=== PATIENT | female | born 1935 | race Caucasian/White ===

== ENCOUNTER 2017-08-04 12:26 | Inpatient (IN) ==
--- NOTE | 2017-08-04 13:03 | Emergency Department Note ---
Disposition Clinical Impression: Atrial flutter with rapid ventricular response, Hx of breast cancer, Pleural effusion Disposition: Admitted As Inpatient Condition: Serious Time of Disposition: 16:22 Arrhythmia/Palpitations HPI - General Chief Complaint: ED Arrhythmia/Palpitations Stated Complaint: A-Fib Time Seen by Provider: 08/04/17 12:36 Source: patient Limitations: no limitations Nursing Notes Reviewed: Yes Vital Signs Reviewed: Yes - History of Present Illness HPI Narrative: 82-year-old female history of paroxysmal A. fib on Coumadin and metoprolol, patient presents from her [facility] office Dr [facility] where she is being worked up for shortness of breath, she was found to be in A. fib with a rate of 150s, patient states that she has had worsening exertional dyspnea some 2 out of 10 chest discomfort worse with exertion. Patient states that she also has been having symptoms for approximately 2 weeks. She has felt palpitations. She states that she had 2 ablations that were unsuccessful, but she is normally rate controlled and not in A. fib. Patient also reports cough and congestion lately. She is a nonsmoker but lived with a smoker for 50 years and does have some wheezes and takes albuterol inhaler at home diagnosed with asthma. Patient denies abdominal pain nausea vomiting diarrhea constipation, hemoptysis or hematochezia. Pt Subjective Complaint: rapid heart beat, "heart racing", atrial fibrillation Onset (ago): week(s) Duration: constant Severity: moderate Arrhythmia History: atrial fibrillation Associated symptoms: Reports: shortness of breath. Denies: chest pain, syncope , near-syncope, nausea, vomiting, anxiety, diaphoresis, cough, paresthesias - Related Data Home Medications Medication Instructions Recorded Confirmed Aspirin Enteric Coated [Aspirin EC] 81 mg PO DAILY 06/08/15 08/04/17 Warfarin [Coumadin] 5 mg PO SUTUWETHSA 06/08/15 08/04/17 amLODIPine [Norvasc] 5 mg PO DAILY 02/19/17 08/04/17 Metoprolol Succinate 25 mg PO DAILY 08/04/17 08/04/17 Montelukast [Singulair] 10 mg PO DAILY 08/04/17 08/04/17 Warfarin [Coumadin] 7.5 mg PO MOFR 08/04/17 08/04/17 Allergies Allergy/AdvReac Type Severity Reaction Status Date / Time azithromycin Allergy Hives Verified 07/31/16 17:30 [From Zithromax Z-Galdino] lisinopril Allergy Cough Verified 08/04/17 13:23 mannitol [From Zometa] Allergy Anaphylaxis Verified 07/31/16 17:30 zoledronic acid [From Zometa] Allergy Anaphylaxis Verified 07/31/16 17:30 All systems ED: reviewed and negative except as stated. Review of Systems: As Per HPI Constitutional: Denies: fever, chills Eyes: Denies: eye pain ENT ED: Denies: ear pain Cardiovascular: Reports: as per HPI, palpitations, dyspnea on exertion, edema Respiratory: Reports: wheezes. Denies: cough, dyspnea Gastrointestinal: Denies: abdominal pain, nausea, vomiting Genitourinary: Denies: urgency, dysuria Musculoskeletal: Denies: back pain, neck pain Integumentary: Denies: rash Past Medical History - Past Medical History Attestation: Yes The following information was validated with the patient. Source: patient Medical history: Reports: atrial fibrillation, cancer, CVA, hypertension, malignancy Surgical history: Reports: breast surgery, knee replacement Psychiatric history: Reports: no psych history - Social History Smoking Status: Never smoker Smokeless Tobacco Status: No Alcohol use: Reports: none Drug use: Reports: none Physical Exam Constitutional: Elderly female appears moderately uncomfortable, on 3 L of oxygen satting 96% tachycardic Eyes: PERRLA, sclera anicteric ENT & Mouth: MM dry Neck: normal inspection, neck is supple Resp: Mild respiratory distress, diminished lung sounds at the bases positive scattered wheezes. CV: Irregularly irregular with +2 pitting edema. GI: normal inspection, soft, no guarding or rigidity Neuro: A&O3, CNII-XII grossly intact, FITZPATRICK Skin: on limited exam, skin intact with no rashes or lesions - General Limitations: no limitations General appearance: alert, in no apparent distress Course Course Narrative: 82-year-old female multiple comorbidities on Coumadin for atrial fibrillation and metoprolol, she is normally rate controlled and is now tachycardic rate of 162 ischemic changes on her EKG, also she is a history of breast cancer, concern for possible malignancy or PE given that she has this history, we have CTA imaging in additional to basic labs CBC BMP blood cultures lactate chest x- ray likely will be admission, Cardizem IV bolus and drip ordered, also diuresis with 40 of Lasix that she has new +2 pitting edema - Reevaluation(s) Reevaluation #1: Patient with A. fib with RVR, also has bilateral pleural effusions on CTA, admitted to medicine service diuresis with IV Lasix, patient is hemodynamically stable still mildly tachycardic titrating up the Cardizem drip, currently in ED hold, the hospitalist Dr. Quijano accepted the patient for admission Time: 16:21 Vital Signs Temperature 98.2 F 08/04/17 12:41 Pulse Rate 161 08/04/17 12:41 Respiratory Rate 18 08/04/17 12:41 Blood Pressure 155/97 08/04/17 12:41 O2 Sat by Pulse Oximetry 97 08/04/17 12:41 Temperature 98.2 F 08/04/17 12:41 Pulse Rate 144 08/04/17 16:21 Respiratory Rate 16 08/04/17 16:21 Blood Pressure 120/68 08/04/17 16:21 O2 Sat by Pulse Oximetry 98 08/04/17 16:21 Oxygen Delivery Oxygen Delivery Nasal Cannula Arrhythmia/Palpitations - Differential Diagnosis Differential Diagnosis: Likely: palpitations, artial arrhythmia - Medical Records Medical records reviewed: Yes I reviewed the patient's medical records. - Lab Data Lab results reviewed: Yes I reviewed the patient's lab results. Result diagrams: 08/04/17 12:50 08/04/17 13:39 Lab Results 08/04/17 08/04/17 08/04/17 Range/Units 12:50 13:08 13:29 WBC 6.0 (4.3-11.1) K/mcL RBC 4.91 (3.82-4.97) M/mcL Hgb 14.3 (11.5-15.4) g/dL Hct 44.8 (35.3-44.9) % MCV 91.2 (83.0-100.0) fL MCH 29.1 (28.0-33.3) pg MCHC 31.9 (31.6-35.5) g/dL RDW 13.7 (11.5-14.5) % Plt Count 221 (140-400) K/mcL MPV 10.0 (9.4-12.4) fL Immature Gran % 0.3 (0-4) % Seg Neutrophils % 68.3 % Lymphocytes % 21.1 % Monocytes % 8.1 % Eosinophils % 1.2 % Basophils % 1.0 % Neutrophils # 4.1 (1.6-8.9) K/mcL Lymphocytes # 1.3 (0.6-4.6) K/mcL Monocytes # 0.5 (0.0-1.3) K/mcL Eosinophils # 0.1 (0.0-0.6) K/mcL Basophils # 0.1 (0.0-0.2) K/mcL PT (9.4-12.1) Seconds INR APTT (26.0-36.0) Seconds Sodium (136-145) mEq/L Potassium (3.5-4.5) mEq/L Chloride (98-109) mEq/L Carbon Dioxide (19-29) mEq/L BUN (7-20) mg/dL Creatinine (0.57-1.11) mg/dL Est GFR ( Amer) (> 60) Est GFR (Non-Af Amer) (> 60) BUN/Creatinine Ratio (6-26) Glucose (70-99) mg/dL Calculated Osmolality (280-300) Lactic Acid (0.5-2.2) mmol/L Calcium (8.6-10.8) mg/dL Magnesium (1.6-2.6) mg/dL Troponin I (0-0.03) ng/mL B-Natriuretic Peptide (0-100) pg/mL TSH (0.350-4.840) mcIU/mL Urine Color Yellow (Yellow) Urine Clarity Clear (Clear) Urine pH 6.0 (5.0-8.0) pH Units Ur Specific [place] 1.023 (1.010-1.025) Urine Protein Trace (Neg-Trace) mg/dL Urine Glucose (UA) Normal (Normal) mg/dL Urine Ketones Negative (Negative) mg/dL Urine Blood Small H (Negative) Urine Nitrite Negative (Negative) Urine Bilirubin Negative (Negative) Urine Urobilinogen Normal (Normal) mg/dL Ur Leukocyte Esterase Small H (Negative) Urine Microscopic RBC 0-3 (0-3) per hpf Urine Microscopic WBC 0-3 (0-3) per hpf Ur Squamous Epith Cells Many H (None-Few) per lpf Urine Bacteria None Seen (None-Few) per hpf Hyaline Casts None Seen (None-Few) per lpf Urine Mucus Moderate H (Few) Ur Culture Indicated? YES A (NO) Specimen Rejected Hemolyzed 08/04/17 08/04/17 08/04/17 Range/Units 13:39 13:39 13:39 WBC (4.3-11.1) K/mcL RBC (3.82-4.97) M/mcL Hgb (11.5-15.4) g/dL Hct (35.3-44.9) % MCV (83.0-100.0) fL MCH (28.0-33.3) pg MCHC (31.6-35.5) g/dL RDW (11.5-14.5) % Plt Count (140-400) K/mcL MPV (9.4-12.4) fL Immature Gran % (0-4) % Seg Neutrophils % % Lymphocytes % % Monocytes % % Eosinophils % % Basophils % % Neutrophils # (1.6-8.9) K/mcL Lymphocytes # (0.6-4.6) K/mcL Monocytes # (0.0-1.3) K/mcL Eosinophils # (0.0-0.6) K/mcL Basophils # (0.0-0.2) K/mcL PT 49.3 H* (9.4-12.1) Seconds INR 4.4 H* APTT 49.8 H (26.0-36.0) Seconds Sodium 139 (136-145) mEq/L Potassium 4.2 (3.5-4.5) mEq/L Chloride 106 (98-109) mEq/L Carbon Dioxide 23 (19-29) mEq/L BUN 11 (7-20) mg/dL Creatinine 0.93 (0.57-1.11) mg/dL Est GFR ( Amer) > 60 (> 60) Est GFR (Non-Af Amer) 58 L (> 60) BUN/Creatinine Ratio 12 (6-26) Glucose 99 (70-99) mg/dL Calculated Osmolality 287 (280-300) Lactic Acid 1.2 (0.5-2.2) mmol/L Calcium 9.3 (8.6-10.8) mg/dL Magnesium 1.8 (1.6-2.6) mg/dL Troponin I (0-0.03) ng/mL B-Natriuretic Peptide (0-100) pg/mL TSH 2.145 (0.350-4.840) mcIU/mL Urine Color (Yellow) Urine Clarity (Clear) Urine pH (5.0-8.0) pH Units Ur Specific [place] (1.010-1.025) Urine Protein (Neg-Trace) mg/dL Urine Glucose (UA) (Normal) mg/dL Urine Ketones (Negative) mg/dL Urine Blood (Negative) Urine Nitrite (Negative) Urine Bilirubin (Negative) Urine Urobilinogen (Normal) mg/dL Ur Leukocyte Esterase (Negative) Urine Microscopic RBC (0-3) per hpf Urine Microscopic WBC (0-3) per hpf Ur Squamous Epith Cells (None-Few) per lpf Urine Bacteria (None-Few) per hpf Hyaline Casts (None-Few) per lpf Urine Mucus (Few) Ur Culture Indicated? (NO) Specimen Rejected 08/04/17 08/04/17 Range/Units 13:39 13:39 WBC (4.3-11.1) K/mcL RBC (3.82-4.97) M/mcL Hgb (11.5-15.4) g/dL Hct (35.3-44.9) % MCV (83.0-100.0) fL MCH (28.0-33.3) pg MCHC (31.6-35.5) g/dL RDW (11.5-14.5) % Plt Count (140-400) K/mcL MPV (9.4-12.4) fL Immature Gran % (0-4) % Seg Neutrophils % % Lymphocytes % % Monocytes % % Eosinophils % % Basophils % % Neutrophils # (1.6-8.9) K/mcL Lymphocytes # (0.6-4.6) K/mcL Monocytes # (0.0-1.3) K/mcL Eosinophils # (0.0-0.6) K/mcL Basophils # (0.0-0.2) K/mcL PT (9.4-12.1) Seconds INR APTT (26.0-36.0) Seconds Sodium (136-145) mEq/L Potassium (3.5-4.5) mEq/L Chloride (98-109) mEq/L Carbon Dioxide (19-29) mEq/L BUN (7-20) mg/dL Creatinine (0.57-1.11) mg/dL Est GFR ( Amer) (> 60) Est GFR (Non-Af Amer) (> 60) BUN/Creatinine Ratio (6-26) Glucose (70-99) mg/dL Calculated Osmolality (280-300) Lactic Acid (0.5-2.2) mmol/L Calcium (8.6-10.8) mg/dL Magnesium (1.6-2.6) mg/dL Troponin I 0.01 (0-0.03) ng/mL B-Natriuretic Peptide 577 H (0-100) pg/mL TSH (0.350-4.840) mcIU/mL Urine Color (Yellow) Urine Clarity (Clear) Urine pH (5.0-8.0) pH Units Ur Specific [place] (1.010-1.025) Urine Protein (Neg-Trace) mg/dL Urine Glucose (UA) (Normal) mg/dL Urine Ketones (Negative) mg/dL Urine Blood (Negative) Urine Nitrite (Negative) Urine Bilirubin (Negative) Urine Urobilinogen (Normal) mg/dL Ur Leukocyte Esterase (Negative) Urine Microscopic RBC (0-3) per hpf Urine Microscopic WBC (0-3) per hpf Ur Squamous Epith Cells (None-Few) per lpf Urine Bacteria (None-Few) per hpf Hyaline Casts (None-Few) per lpf Urine Mucus (Few) Ur Culture Indicated? (NO) Specimen Rejected - Radiology Data Radiology results reviewed: Yes I reviewed the patient's radiology results. Chest X-Ray 08/04/17 12:38 IMPRESSION: Small right effusion and associated right basilar airspace disease, atelectasis versus pneumonia. Follow-up radiographs recommended to document resolution. D/ / Janes Dang MD / Janes Dang MD Interpreting Provider: Janes Dang MD - EKG Data EKG attestation: Yes I reviewed and interpreted this EKG. Rate: tachycardia Rhythm: A.Fib (162 QRS 94 QTC 363 rapid atrial fibrillation SE depressions in lateral leads V4 through V6, no ST elevations) Critical Care Time Critical Care Time: Yes Total Critical Care Time: 35 Attestation: Critical care performed: Time is exclusive of separately billable procedures. Time includes: direct patient care, patient reassessment, coordination of patient care, interpretation of data (laboratory data, radiology data, and respiratory data), review of patient's medical records, medical consultation and documentation of patient care. Procedures included in critical care time: Procedures excluded from critical care time: Attestation Statement - Attestation Attestation: I, Vitaly French DO, examined this patient [id number] and my medical decision-making was reviewed with Dr. Scott Obrien, Resident Physician. I agree with the documented findings, disposition and treatment plan as described except to the extent set forth below. Please see my progress notes for details. Patient seen and examined the time arrival. 82-year-old female presents emergency room for evaluation of increasing exertional dyspnea and A. fib RVR. EKG confirms A. fib with rapid ventricular response. Patient has had persistently worsening exertional conversational dyspnea over the last several weeks to the point where she is unable to take 5-10 steps without feeling short of breath. She has not had an echo or stress test complete pleated performed within the last several years. Denies any recent trauma or illness. Currently denying chest pain shortness breath headache vision changes nausea vomiting or diarrhea. Denies headache or fevers or chills at this point. She has not been able to ambulate around the emergency room without shortness of breath this time. Physical exam is unremarkable except for tachycardia. Her lungs are intermittently coarse and expiration but no acute signs of wheezing or consolidation noted. Detailed evaluation to be completed with shortness of breath as the main concern. Cardizem drip ordered and started this point. Her rate control. Hospice patient for admission. No other concerns or issues noted in this treatment course. Concern is the patient has decompensated heart failure secondary to the atrial fibrillation. Patient will require admission for definitive evaluation and management. Patient is currently on Coumadin her INR is 4.4. No reversal agents to be started at this point we will continue to monitor during the treatment course. See detailed documentation of physical exam, medical intervention and medical decision making and disposition of the resident physician's note. 1425 Patient has scant pleural effusion on evaluation CT angiography of the chest ordered secondary to her history of lung cancer. INR is 4.4 and will not be corrected at this time. Admission process to be completed. Critical care applied to this patient during the treatment course secondary to A. fib RVR and Cardizem drip
[2017-08-04 13:07] LABS: Basophils # 0.1 K/mcL (0.0-0.2); Eosinophils # 0.1 K/mcL (0.0-0.6); Eosinophils % 1.2 %; Hematocrit 44.8 % (35.3-44.9); Hemoglobin 14.3 g/dL (11.5-15.4); Immature Granulocytes % 0.3 % (0-4); Lymphocytes # 1.3 K/mcL (0.6-4.6); Lymphocytes % 21.1 %; Mean Corpuscular HGB Conc 31.9 g/dL (31.6-35.5); Mean Corpuscular Hemoglobin 29.1 pg (28.0-33.3); Mean Corpuscular Volume 91.2 fL (83.0-100.0); Monocytes # 0.5 K/mcL (0.0-1.3); Monocytes % 8.1 %; Neutrophils # 4.1 K/mcL (1.6-8.9); Platelet Count 221 K/mcL (140-400); Red Blood Count 4.91 M/mcL (3.82-4.97); Red Cell Distribution Width 13.7 % (11.5-14.5); Segmented Neutrophils % 68.3 %
[2017-08-04] MEDS ORDERED: Aspirin 81 MG TAB.CHEW PO ONE (13:15)
[2017-08-04] MEDS ORDERED: Furosemide 40 MG/4 ML VIAL IVP ONE (13:15)
[2017-08-04 13:36] LABS: Bilirubin,Urine Negative (Negative); Blood,Urine Small (Negative); Clarity,Urine Clear (Clear); Color,Urine Yellow (Yellow); Glucose,Urine (UA) Normal (Normal); Ketones,Urine Negative (Negative); Leukocyte Esterase,Urine Small (Negative); Nitrite,Urine Negative (Negative); Protein,Urine Trace mg/dL (Neg-Trace); Specific Gravity,Urine 1.023 (1.010-1.025); Urobilinogen,Urine Normal (Normal)
[2017-08-04 13:38] LABS: Bacteria,Urine None Seen per hpf (None-Few); Hyaline Casts,Urine None Seen per lpf (None-Few); Squamous Epithelial Cell,Urine Many per lpf (None-Few); WBC,Urine 0-3 per hpf (0-3)
[2017-08-04 13:48] LABS: Mucus,Urine Moderate (Few); RBC,Urine 0-3 per hpf (0-3)
[2017-08-04 14:05] LABS: Activated Partial Thrombo Time 49.8 Seconds (26.0-36.0)
[2017-08-04 14:07] LABS: BUN/Creatinine Ratio 12 (6-26); Blood Urea Nitrogen 11 mg/dL (7-20); Calcium 9.3 mg/dL (8.6-10.8); Carbon Dioxide 23 mEq/L (19-29); Chloride 106 mEq/L (98-109); Glucose 99 mg/dL (70-99); Magnesium 1.8 mg/dL (1.6-2.6); Osmolality,Calculated 287 (280-300); Potassium 4.2 mEq/L (3.5-4.5); Sodium 139 mEq/L (136-145); eGFR For African Americans > 60 (> 60); eGFR For Non-African Americans 58 (> 60)
[2017-08-04 14:19] LABS: INR 4.4; Prothrombin Time 49.3 Seconds (9.4-12.1)
[2017-08-04 14:29] LABS: Thyroid Stimulating Hormone 2.145 mcIU/mL (0.350-4.840)
[2017-08-04] MEDS: dilTIAZem HCl 100 MG in D5% in Water 50 ML IVC SCH ×2 (14:29→23:54)
--- NOTE | 2017-08-04 20:01 | Internal Med History&Physical ---
Date of Encounter: 08/04/17 Time of Encounter: 19:54 Assessment and Plan (1) Atrial fibrillation and flutter Current visit: Yes Status: Acute continue coumadin, check INR Dilt gtt continue metoprolol tele, close monitoring TFT (2) Acute bronchitis Current visit: Yes Status: Acute IV steroids,doxycycline, duonebs Check RVP Qualifiers: Bronchitis organism: other organism Qualified Code(s): J20.8 - Acute bronchitis due to other specified organisms (3) HTN (hypertension) Current visit: Yes Status: Acute hold norvasc Qualifiers: Hypertension type: essential hypertension Qualified Code(s): I10 - Essential (primary) hypertension Internal Medicine - H&P: HPI Chief complaint: SOB History of present illness: Ms. Costa is a 82 year old female who presents with acute bronchitis AND A. fib RVR. She has a history of atrial fibrillation since [address] Garcia outpatient and is currently being work up by Pulm for SOB. She does not smoke, but i believe she has some possibly some COPD from second hand smoke from . She was in the clinic today when she developed SOB on walk test. Found to be in AFib rvr. It is worse on exertion, improve with rest EKG personally reviewed with rate 162, RVR CT/CT angio chest IMPRESSION: 1. No evidence of pulmonary embolism. 2. Moderate right and small left pleural effusions with adjacent airspace disease, atelectasis versus pneumonia versus edema. 3. Bronchial wall thickening. A component of bronchitis or reactive airways disease is considered. 4. Small hiatal hernia. Cholelithiasis. XR/XR chest 1V portable IMPRESSION: Small right effusion and associated right basilar airspace disease, atelectasis versus pneumonia. Follow-up radiographs recommended to document resolution. Past Med Surg Social Fam HX - Past Medical History Medical history: asthma, atrial fibrillation, cancer, CVA, hypertension, malignancy Psychiatric history: no psych history - Past Surgical History Surgical History: breast surgery, knee replacement - Social History Smoking Status: Never smoker Smokeless Tobacco Status: No Alcohol use: none Drug use: none - Family History Mother Living Status: Hx Family Cancer: Yes Internal Medicine - H&P: Meds Aspirin Enteric Coated [Aspirin EC] 81 mg PO DAILY 06/08/15 [History] Warfarin [Coumadin] 5 mg PO SUTUWETHSA 06/08/15 [History] amLODIPine [Norvasc] 5 mg PO DAILY 02/19/17 [History] Metoprolol Succinate 25 mg PO DAILY 08/04/17 [History] Montelukast [Singulair] 10 mg PO DAILY 08/04/17 [History] Warfarin [Coumadin] 7.5 mg PO MOFR 08/04/17 [History] 3 Allergy/AdvReac Type Severity Reaction Status Date / Time azithromycin Allergy Hives Verified 07/31/16 17:30 [From Zithromax Z-Galdino] lisinopril Allergy Cough Verified 08/04/17 13:23 mannitol [From Zometa] Allergy Anaphylaxis Verified 07/31/16 17:30 zoledronic acid [From Zometa] Allergy Anaphylaxis Verified 07/31/16 17:30 All Systems PM: A 10-system review of systems was performed and is negative for pertinent findings except as documented above in the HPI. Review of systems: ROS 14 point review of systems reviewed as best as possible given presentation. Pertinent positive or negative as per HPI or otherwise reviewed as negative - Constitutional Vitals: Temp Pulse Resp BP Pulse Ox 98.2 F 130 18 117/61 99 08/04/17 12:41 08/04/17 17:49 08/04/17 17:49 08/04/17 17:49 08/04/17 17:49 Exam: General - AAO x 3 Psych - Appropriate affect/speech. No agitation Eyes - PAMELA. Eye lids intact. No scleral icterus Heart - Irregularly irregular S1 and S2 present. No added HS/murmurs appreciated. No elevated JVD appreciated. Lung - Adequate air entry b/l, diffuse wheezes, no crackles appreciated GI - Soft, non-tender. No hepatosplenomegaly/ascites. BS+ - No CVA/suprapubic tenderness or palpable bladder distension Skin - Intact. No rash/petechiae/ecchymosis. Warm extremities MSK - Joints with normal ROM. No joint swellings Internal Med - H&P Results - Labs CBC & Chem 7: 08/04/17 12:50 08/04/17 13:39
[2017-08-04] MEDS ORDERED: Acetaminophen 325 MG TABLET PO PRN (20:27)
[2017-08-04] MEDS ORDERED: Naloxone 0.4 MG/ML INJ IVP PRN (20:27)
[2017-08-04] MEDS ORDERED: Ipratropium/Albuterol Neb 3 ML IH PRN (20:29)
[2017-08-04] MEDS ORDERED: *HR* Warfarin 10 MG TABLET PO SCH (20:30)
[2017-08-04] MEDS ORDERED: Azithromycin 500 MG in D5% in Water 250 ML IVPB SCH (21:00)
[2017-08-04] MEDS ORDERED: 0.9 % Sodium Chloride 500 ML ONE ×2 (21:14→23:58)
[2017-08-04] MEDS: Doxycycline 100 MG in 0.9 % Sodium Chloride Mini Bag 100 ML IVPB SCH (22:21)
[2017-08-04] MEDS: Ipratropium/Albuterol Neb 3 ML IH SCH (22:21)
[2017-08-04] MEDS: MethylPREDNISolone 40 MG/ML VIAL IVP SCH (23:54)
[2017-08-05] MEDS: Ipratropium/Albuterol Neb 3 ML IH SCH ×2 (03:58→11:11)
[2017-08-05 05:56] LABS: Basophils % 0.1 %; Eosinophils % 0.1 %; Hematocrit 41.8 % (35.3-44.9); Hemoglobin 13.6 g/dL (11.5-15.4); Immature Granulocytes % 0.3 % (0-4); Lymphocytes # 0.6 K/mcL (0.6-4.6); Lymphocytes % 8.3 %; Mean Corpuscular HGB Conc 32.5 g/dL (31.6-35.5); Mean Corpuscular Hemoglobin 29.6 pg (28.0-33.3); Mean Corpuscular Volume 90.9 fL (83.0-100.0); Mean Platelet Volume 9.8 fL (9.4-12.4); Monocytes # 0.1 K/mcL (0.0-1.3); Monocytes % 1.3 %; Neutrophils # 6.2 K/mcL (1.6-8.9); Platelet Count 177 K/mcL (140-400); Red Cell Distribution Width 13.4 % (11.5-14.5); Segmented Neutrophils % 89.9 %
[2017-08-05] MEDS: MethylPREDNISolone 40 MG/ML VIAL IVP SCH (05:57)
[2017-08-05 06:04] LABS: BUN/Creatinine Ratio 13 (6-26); Blood Urea Nitrogen 13 mg/dL (7-20); Calcium 8.6 mg/dL (8.6-10.8); Carbon Dioxide 21 mEq/L (19-29); Chloride 106 mEq/L (98-109); Glucose 185 mg/dL (70-99); Magnesium 1.7 mg/dL (1.6-2.6); Osmolality,Calculated 291 (280-300); Potassium 3.8 mEq/L (3.5-4.5); Sodium 138 mEq/L (136-145); eGFR For African Americans > 60 (> 60); eGFR For Non-African Americans 53 (> 60)
[2017-08-05 06:26] LABS: Thyroid Stimulating Hormone 1.118 mcIU/mL (0.350-4.840)
[2017-08-05 06:40] LABS: Prothrombin Time 48.8 Seconds (9.4-12.1)
[2017-08-05 06:41] LABS: INR 4.4
[2017-08-05] MEDS: Aspirin Enteric Coated 81 MG Tablet PO SCH (08:41)
[2017-08-05] MEDS: Metoprolol XL (24 HR) Succ 50 MG TAB.ER.24H PO SCH (08:41)
[2017-08-05] MEDS: Doxycycline 100 MG in 0.9 % Sodium Chloride Mini Bag 100 ML IVPB SCH (08:41)
[2017-08-05] MEDS ORDERED: Furosemide 40 MG/4 ML VIAL IVP ONE (09:00)
--- NOTE | 2017-08-05 09:46 | Internal Med Progress Note ---
Date of Encounter: 08/05/17 Time of Encounter: 09:44 - Assessment and plan (1) Atrial flutter with rapid ventricular response Current Visit: Yes Status: Acute Assessment and plan: Patient has known history of paroxysmal atrial fibrillation, on metoprolol at home. Presented with atrial fibrillation with rapid ventricular response. Started on IV Cardizem drip, currently requiring 15 mg/h, continue to titrate and monitor heart rate to keep between 90 and 110. Supplemental oxygen. Continue by mouth metoprolol. On long-term anticoagulation with Coumadin, currently on hold due to high INR. Follow-up echocardiogram. Continue telemetry monitoring and supportive care. (2) Pleural effusion Current Visit: Yes Status: Acute Assessment and plan: CT chest shows bilateral pleural effusion, right greater than left. Likely a result of tachycardia. We will consult IR for ultrasound-guided thoracentesis. Continue IV Lasix. (3) Acute bronchitis Current Visit: Yes Status: Acute Assessment and plan: Improving. We will hold steroids for now. Continue doxycycline. Supplemental oxygen. Qualifiers: Bronchitis organism: unspecified organism Qualified Code(s): J20.9 - Acute bronchitis, unspecified (4) CKD (chronic kidney disease), stage III Current Visit: Yes Status: Chronic Assessment and plan: Serum creatinine noted to be stable, at baseline. Continue to monitor closely. (5) Hx of breast cancer Current Visit: Yes Status: Chronic (6) HTN (hypertension) Current Visit: Yes Status: Chronic Qualifiers: Hypertension type: essential hypertension Qualified Code(s): I10 - Essential (primary) hypertension - Subjective Interval history: Feels better with improved shortness of breath; no palpitations although HR is still high, on IV Cardizem drip; no chest pain, leg swelling; still has exertional dyspnea; requiring NC O2; - Constitutional Vitals: Temp Pulse Resp BP Pulse Ox 97.6 F 118 17 117/76 95 08/05/17 07:06 08/05/17 07:06 08/05/17 07:06 08/05/17 08:38 08/05/17 07:06 General appearance: Present: A&O X 3, answers questions appropriately - Respiratory Respiratory exam: Present: decreased breath sounds (at right base), CTAB. Absent: accessory muscle use, rales, rhonchi, wheezes - Cardiovascular Cardiovascular exam: Present: irregular rhythm, +S1, +S2, tachycardia. Absent: diastolic murmur, gallop, rubs, systolic murmur - GI/Abdominal GI/Abdominal exam: Present: normal bowel sounds, soft, no peritoneal signs. Absent: distended, tenderness - Extremities Exam Extremities exam: Present: full ROM, warm, radial pulses palpable and symmetrical. Absent: calf tenderness, cyanotic, pedal edema - Neurological Exam Neurological exam: Present: CN II-XII intact, oriented X3, no focal deficits. Absent: pronater drift, facial droop, speech deficit Internal Medicine: Result - Labs CBC & Chem 7: 08/06/17 03:59 08/06/17 03:59 Labs: Short CBC 08/05/17 Range/Units 05:41 WBC 6.9 (4.3-11.1) K/mcL Hgb 13.6 (11.5-15.4) g/dL Hct 41.8 (35.3-44.9) % Plt Count 177 (140-400) K/mcL Neutrophils # 6.2 (1.6-8.9) K/mcL BMP 08/05/17 05:41 Sodium 138 Potassium 3.8 Chloride 106 Carbon Dioxide 21 BUN 13 Creatinine 1.00 Glucose 185 H Calcium 8.6 - ABG Interpretation ABG results: PT/INR, D-dimer PT 48.8 Seconds (9.4-12.1) H* 08/05/17 05:41 Consult Discharge Plan - Plan Referrals: Elizabeth Goldman MD [Primary Care Provider] - 08/12/17 1:45 pm (web request sent on 08/05/17)
[2017-08-05] MEDS: Furosemide 40 MG/4 ML VIAL IVP SCH ×2 (10:07→17:42)
[2017-08-05] MEDS ORDERED: Albuterol 2.5 MG/3 ML NEBULIZER IH PRN (11:50)
[2017-08-05] MEDS ORDERED: Albuterol 2.5 MG/3 ML NEBULIZER IH SCH (16:00)
[2017-08-05] MEDS: dilTIAZem HCl 100 MG in D5% in Water 50 ML IVC SCH (16:17)
[2017-08-05] MEDS: Levalbuterol Neb 0.63 MG/3 ML IH SCH ×2 (16:35→21:09)
[2017-08-05] MEDS: Ipratropium Neb 0.5 MG NEBULIZER IH SCH ×2 (16:38→21:09)
[2017-08-05] MEDS: Doxycycline 100 MG CAPSULE PO SCH (17:41)
[2017-08-05] MEDS ORDERED: Warfarin perPT PO PRN ×2 (18:00)
[2017-08-06] MEDS ORDERED: 0.9 % Sodium Chloride 500 ML ONE ×2 (00:41→21:24)
[2017-08-06] MEDS: *HR* Metoprolol 5 MG/5 ML VIAL IVP PRN (00:47)
[2017-08-06] MEDS: Ipratropium Neb 0.5 MG NEBULIZER IH SCH ×4 (03:29→22:13)
[2017-08-06] MEDS: Levalbuterol Neb 0.63 MG/3 ML IH SCH ×6 (03:29→22:13)
[2017-08-06 04:33] LABS: Basophils % 0.1 %; Hematocrit 38.5 % (35.3-44.9); Hemoglobin 12.7 g/dL (11.5-15.4); Immature Granulocytes % 0.4 % (0-4); Lymphocytes # 0.7 K/mcL (0.6-4.6); Lymphocytes % 4.7 %; Mean Corpuscular Hemoglobin 29.7 pg (28.0-33.3); Mean Corpuscular Volume 90.2 fL (83.0-100.0); Mean Platelet Volume 10.2 fL (9.4-12.4); Monocytes # 0.5 K/mcL (0.0-1.3); Monocytes % 3.5 %; Neutrophils # 12.7 K/mcL (1.6-8.9); Platelet Count 183 K/mcL (140-400); Red Blood Count 4.27 M/mcL (3.82-4.97); Red Cell Distribution Width 13.4 % (11.5-14.5); Segmented Neutrophils % 91.3 %
[2017-08-06 04:48] LABS: Calcium 8.4 mg/dL (8.6-10.8); Magnesium 1.8 mg/dL (1.6-2.6); Potassium 3.9 mEq/L (3.5-4.5)
[2017-08-06 04:54] LABS: INR 4.1
[2017-08-06 04:59] LABS: Prothrombin Time 45.8 Seconds (9.4-12.1)
[2017-08-06] MEDS: Doxycycline 100 MG CAPSULE PO SCH ×2 (05:48→17:36)
[2017-08-06] MEDS: dilTIAZem HCl 100 MG in D5% in Water 50 ML IVC SCH ×2 (05:48→15:11)
[2017-08-06] MEDS ORDERED: *HR* Phytonadione 5 MG TABLET PO ONE (08:36)
--- NOTE | 2017-08-06 08:47 | Internal Med Progress Note ---
Date of Encounter: 08/06/17 Time of Encounter: 08:44 - Assessment and plan (1) Atrial fibrillation with RVR Current Visit: Yes Status: Acute Assessment and plan: On IV Cardizem drip at 10mg/hr, HR continues to fluctuate between 130 and 110; Echocardiogram pending; PRN IV Metoprolol; anticoagulation with Coumadin on hold due to high INR; Patient likely has acute CHF due to a.fib, with right pleural effusion and pedal edema; will switch Lasix to PO LAsix today, had good urine output; continue supportive care and supplemental O2; will consult Cardiology; (2) Acute bronchitis Current Visit: Yes Status: Acute Assessment and plan: improved; continue Doxycycline and supplemental O2; Qualifiers: Bronchitis organism: unspecified organism Qualified Code(s): J20.9 - Acute bronchitis, unspecified (3) Pleural effusion Current Visit: Yes Status: Acute Assessment and plan: right-sided moderate pleural effusion likely due to A.fib with RVR; IR consulted for thoracentesis, pending improvement in INR; will give small dose of Vit K today; (4) CKD (chronic kidney disease), stage III Current Visit: Yes Status: Chronic Assessment and plan: serum creatinine noted to be worse due to IV diuresis; continue to monitor closely; (5) Hx of breast cancer Current Visit: Yes Status: Chronic (6) HTN (hypertension) Current Visit: Yes Status: Chronic Qualifiers: Hypertension type: essential hypertension Qualified Code(s): I10 - Essential (primary) hypertension - Subjective Interval history: Improving shortness of breath, tolerates diet; requiring IV Cardizem drip and supplemental O2; ambulating well; - Constitutional Vitals: Temp Pulse Resp BP Pulse Ox 97.7 F 96 17 111/78 92 08/06/17 07:26 08/06/17 07:26 08/06/17 07:26 08/06/17 07:26 08/06/17 07:26 General appearance: Present: A&O X 3, answers questions appropriately - Respiratory Respiratory exam: Present: decreased breath sounds (at right base, improved from yesterday), CTAB. Absent: accessory muscle use, rales, rhonchi, wheezes - Cardiovascular Cardiovascular exam: Present: irregular rhythm, +S1, +S2, tachycardia. Absent: diastolic murmur, gallop, rubs, systolic murmur - GI/Abdominal GI/Abdominal exam: Present: normal bowel sounds, soft, no peritoneal signs. Absent: distended, tenderness - Extremities Exam Extremities exam: Present: full ROM, pedal edema (improving), warm, radial pulses palpable and symmetrical. Absent: calf tenderness, cyanotic - Neurological Exam Neurological exam: Present: CN II-XII intact, oriented X3, no focal deficits. Absent: pronater drift, facial droop, speech deficit Internal Medicine: Result - Labs CBC & Chem 7: 08/06/17 03:59 08/06/17 03:59 Labs: Short CBC 08/06/17 Range/Units 03:59 WBC 13.9 H D (4.3-11.1) K/mcL Hgb 12.7 (11.5-15.4) g/dL Hct 38.5 (35.3-44.9) % Plt Count 183 (140-400) K/mcL Neutrophils # 12.7 H (1.6-8.9) K/mcL BMP 08/06/17 03:59 Sodium 139 Potassium 3.9 Chloride 106 Carbon Dioxide 22 BUN 21 H Creatinine 1.12 H Glucose 149 H Calcium 8.4 L - ABG Interpretation ABG results: PT/INR, D-dimer PT 45.8 Seconds (9.4-12.1) H* 08/06/17 03:59 Consult Discharge Plan - Plan Referrals: Elizabeth Goldman MD [Primary Care Provider] - 08/12/17 1:45 pm (web request sent on 08/05/17)
[2017-08-06] MEDS: Aspirin Enteric Coated 81 MG Tablet PO SCH (09:11)
[2017-08-06] MEDS: Metoprolol XL (24 HR) Succ 50 MG TAB.ER.24H PO SCH (09:13)
[2017-08-06] MEDS: Furosemide 20 MG TABLET PO SCH ×2 (09:13→17:20)
[2017-08-06] MEDS: Furosemide 40 MG/4 ML VIAL IVP SCH (10:24)
--- NOTE | 2017-08-06 14:57 | Cardiology Consult Note ---
Date of Encounter: 08/06/17 Time of Encounter: 14:00 Assessment and Plan (1) Atrial fibrillation with RVR Current Visit: Yes Status: Acute Per cardiology: -Know paroxysmal atrial fibrillation. On admission adrian RVR. -Currently on cardizem drip at 10mg/hour and toprol 25mg daily. -TTE with LVEF 50-55%, no segmental wall motion abnormalities noted. -TSH, K, Mg within normal limits. -On coumadin for anticoagulation, INR supratherapuetic. Follows with anticoagulation clinic. INRs have been therapuetic for the last 30 days. INR 2.1, 07/01 2.6, 07/07 2.3. -Average HR previous 12 hours noted to be 101, atrial fibrillation. -ECG on admission with adrian RVR, HR 162. QT 273, QTc 363ms. -ECG 08/19/16 with SB, HR 57. QT 460, QTc 454ms. -Per discussion with Dr.John Arevalo, will start sotalol 40mg [id number]. Patient educated that she would need to be inpatient for several days for initiation of sotalol and need for monitoring. Patient states understanding and agreeable to proceed. -ECG daily. Continue telemetry monitoring. -Continue cardizem drip and toprol for now, will make adjustements as necessary. -Will continue to monitor. (2) CHF (congestive heart failure) Current Visit: Yes Status: Acute Per cardiology: -ADmitted with increased shortness of breath. -BNP on admission 577. -Chest CT with moderate right pleural effusion and small left pleural effusion. -Baseline weight 88kg. -Weight on admission 90.3kg, now down to 88kg today. -Was given IV lasix, now on po per primary service. -Euvolemic on exam today. -Strict i/os, daily weights. -Will continue to monitor. Qualifiers: Congestive heart failure type: diastolic Congestive heart failure chronicity: acute Qualified Code(s): I50.31 - Acute diastolic (congestive) heart failure Discussion w patient/family: The assessment and plan as outlined above was discussed with the patient and/or family members who expressed understanding and agreement. All questions were answered. Thank you for involving us in the care of your patient. Please call with any questions. Discuissed and reviewed with Dr.John Arevalo. History of Present Illness Consult date: 08/06/17 Requesting physician: Camille Milian Consult reason: [email or web address] RVR Chief complaint: shortness of breath, tachycardia. History of present illness: Ms. Costa is a 82 year old female with a relevant past medical history of paroxysmal atrial fibrillation, CVA, HTN, asthma. Patient presented to [facility] after being seen by pulmonary and noted to have HRs 150s. Patient denies palpitations or fluttering. Patient states she has been more short of breath and more fatigued here lately. Patient denies chest pain. Patient also reports had increased peripheral edema upon presentation to [facility]. Past Med Surg Social Fam HX - Past Medical History Attestation: Yes The following information was validated with the patient. Source: patient, old records reviewed, obtained from family Medical history: asthma, atrial fibrillation, cancer, CVA, hypertension, malignancy Psychiatric history: no psych history - Past Surgical History Surgical History: breast surgery, knee replacement - Social History Smoking Status: Never smoker Smokeless Tobacco Status: No Alcohol use: none Drug use: none - Family History Mother Living Status: Hx Family Cancer: Yes Medications and Allergies Aspirin Enteric Coated [Aspirin EC] 81 mg PO DAILY 06/08/15 [History] Warfarin [Coumadin] 5 mg PO SUTUWETHSA 06/08/15 [History] amLODIPine [Norvasc] 5 mg PO DAILY 02/19/17 [History] Metoprolol Succinate 25 mg PO DAILY 08/04/17 [History] Montelukast [Singulair] 10 mg PO DAILY 08/04/17 [History] Warfarin [Coumadin] 7.5 mg PO MOFR 08/04/17 [History] 3 Allergy/AdvReac Type Severity Reaction Status Date / Time azithromycin Allergy Hives Verified 07/31/16 17:30 [From Zithromax Z-Galdino] lisinopril Allergy Cough Verified 08/04/17 13:23 mannitol [From Zometa] Allergy Anaphylaxis Verified 07/31/16 17:30 zoledronic acid [From Zometa] Allergy Anaphylaxis Verified 07/31/16 17:30 All Systems Review: A 10-system review of systems was performed and is negative for pertinent findings except as documented above in the HPI. - Constitutional Constitutional: fatigue - Cardiovascular Cardiovascular: as per HPI, dyspnea on exertion, rapid heart rate Physical Examination Vital Signs, Last 4 Hours Temp Pulse Resp BP Pulse Ox 08/06/17 13:51 97.8 F 98 18 101/68 93 08/06/17 13:10 98.0 F 96 17 108/66 99 General: Conversant, No Apparent Distress HEENT: Atraumatic, Normocephaly, Mucus Membranes Moist Neck: No JVD, Normal carotid pulses Cardiac: Normal S1 and S2, No Murmur, Other (Irregularly irregular) Lungs: Normal Breath Sounds, No Wheeze, Rales, Rhonchi Neuro: Alert and responsive, No focal deficits noted Abdomen: Soft, Non-Tender Skin: No rashes noted on visualized skin Musculoskeletal: No Chest Wall Tenderness Extremities: No Clubbing, No Cyanosis, No Edema, Normal Pulses Results 08/06/17 03:59 08/06/17 03:59 Lab Results Impressions Echocardiogram 08/05/17 09:46 Impressions: LVEF 50-55%. Normal LV chamber size and function. Indeterminate diastolic function. Normal right ventricular structure and function. Mild to moderately dilated right atrium. Mild mitral regurgitation. Mild tricuspid regurgitation. No pulmonary hypertension. Left Ventricular Wall Motion: Rest Echo Findings All wall segments showed normal motion. Findings: Study Quality * Technically adequate exam. ECG Findings * Atrial fibrillation. Left Ventricle * LVEF 50-55%. * Normal LV chamber size and function. * Indeterminate diastolic function. Right Ventricle * Normal right ventricular structure and function. Left Atrium * Moderately dilated left atrium. Right Atrium * Mild to moderately dilated right atrium. Interatrial Septum * Interatrial septum not well evaluated. Aortic Valve * Aortic valve not well visualized. * No aortic stenosis. * No aortic regurgitation. Mitral Valve * Normal mitral valve structure. * Mild mitral regurgitation. * No mitral stenosis. Tricuspid Valve * Normal tricuspid valve structure. * Mild tricuspid regurgitation. * No pulmonary hypertension. Pulmonic Valve * Normal pulmonic valve structure and function. * No pulmonic regurgitation. Aorta * Normally sized aortic root. Pericardium * The pericardium appears normal. IVC * Normal IVC dimensions and inspiratory collapse. Pulmonary Artery * Normal visualized portions of the main pulmonary artery. Active Medications Acetaminophen (Tylenol) 650 mg PO Q6HR PRN PRN Reason: Mild Pain (1-3) Stop: 02/03/18 20:28 Albuterol Sulfate (Proventil Neb) 2.5 mg IH Q2H PRN; Protocol PRN Reason: Shortness Of Breath/Wheezing Stop: 02/04/18 11:51 Aspirin (Aspirin Ec) 81 mg PO DAILY [facility] Stop: 02/04/18 09:01 Last Admin: 08/06/17 09:11 Dose: 81 mg Docusate Sodium (Colace) 100 mg PO BID KEYANA PRN Reason: Protocol Stop: 02/05/18 09:01 Last Admin: 08/06/17 09:11 Dose: 100 mg Doxycycline Hyclate (Doxycycline) 100 mg PO Q12HR KEYANA Stop: 02/04/18 18:01 Last Admin: 08/06/17 05:48 Dose: 100 mg Furosemide (Lasix) 20 mg PO BIDDIURETIC [facility] Stop: 02/05/18 08:46 Last Admin: 08/06/17 09:13 Dose: 20 mg Diltiazem HCl 100 mg/ Dextrose 50 mls @ 2.5 mls/hr IVC .Q20H KEYANA PRN Reason: 5 MG/HR Stop: 02/03/18 13:16 Last Admin: 08/06/17 05:48 Dose: 10 mg/hr, 5 mls/hr Ipratropium [place] (Atrovent Neb) 0.5 mg IH [id number] [facility] Stop: 02/04/18 16:01 Last Admin: 08/06/17 10:44 Dose: Not Given Levalbuterol HCl (Xopenex) 0.63 mg IH [id number] [facility] Stop: 02/04/18 16:01 Last Admin: 08/06/17 10:44 Dose: Not Given Metoprolol Succinate (Toprol Xl) 25 mg PO DAILY [facility] Stop: 02/04/18 09:01 Last Admin: 08/06/17 09:13 Dose: 25 mg Metoprolol Tartrate (Lopressor) 5 mg IVP Q6HR PRN PRN Reason: HR>110 Stop: 02/04/18 09:43 Last Admin: 08/06/17 00:47 Dose: 5 mg Montelukast Sodium (Singulair) 10 mg PO DAILY [facility] Stop: 02/04/18 09:01 Last Admin: 08/06/17 09:10 Dose: 10 mg Naloxone HCl (Narcan) 0.4 mg IVP Q2MIN PRN PRN Reason: Opioid Reversal Stop: 02/03/18 20:28 Warfarin Sodium (Coumadin Perpt) 1 each PO DAILY@1800 PRN PRN Reason: SEE COMMENTS Stop: 02/04/18 18:01 Laboratory Tests 08/04/17 08/04/17 08/04/17 13:39 13:39 13:39 WBC Hgb INR Potassium Creatinine 0.93 Magnesium Troponin I 0.01 B-Natriuretic Peptide 577 H TSH 2.145 08/06/17 08/06/17 08/06/17 03:59 03:59 03:59 WBC 13.9 H D Hgb 12.7 INR 4.1 Potassium 3.9 Creatinine 1.12 H Magnesium 1.8 Troponin I B-Natriuretic Peptide TSH - Imaging and Cardiology Chest Xray: report reviewed Echo: report reviewed - EKG Interpretation EKG results cardiology: personally reviewed (ECG with atrial fibrillation with RVR, HR 162.), other (Telemetry reviewed with average HR previous 12 hours noted to be 101, atrial fibrillation. PVCs noted.) Consult Discharge Plan - Plan Referrals: Elizabeth Goldman MD [Primary Care Provider] - 08/12/17 1:45 pm (web request sent on 08/05/17)
[2017-08-06] MEDS ORDERED: Melatonin 3 MG TABLET PO PRN (17:39)
[2017-08-07] MEDS: dilTIAZem HCl 100 MG in D5% in Water 50 ML IVC SCH (01:13)
[2017-08-07] MEDS: Levalbuterol Neb 0.63 MG/3 ML IH SCH ×4 (04:01→21:28)
[2017-08-07] MEDS: Ipratropium Neb 0.5 MG NEBULIZER IH SCH ×4 (04:01→21:28)
[2017-08-07 04:31] LABS: Basophils % 0.2 %; Eosinophils % 0.1 %; Hematocrit 38.9 % (35.3-44.9); Hemoglobin 12.5 g/dL (11.5-15.4); Immature Granulocytes % 0.5 % (0-4); Lymphocytes # 1.5 K/mcL (0.6-4.6); Lymphocytes % 14.4 %; Mean Corpuscular HGB Conc 32.1 g/dL (31.6-35.5); Mean Corpuscular Hemoglobin 29.3 pg (28.0-33.3); Mean Corpuscular Volume 91.3 fL (83.0-100.0); Mean Platelet Volume 9.9 fL (9.4-12.4); Monocytes # 0.7 K/mcL (0.0-1.3); Monocytes % 6.2 %; Neutrophils # 8.3 K/mcL (1.6-8.9); Platelet Count 195 K/mcL (140-400); Red Blood Count 4.26 M/mcL (3.82-4.97); Red Cell Distribution Width 13.7 % (11.5-14.5); Segmented Neutrophils % 78.6 %
[2017-08-07 04:35] LABS: BUN/Creatinine Ratio 24 (6-26); Blood Urea Nitrogen 24 mg/dL (7-20); Calcium 8.3 mg/dL (8.6-10.8); Carbon Dioxide 24 mEq/L (19-29); Chloride 108 mEq/L (98-109); Glucose 104 mg/dL (70-99); Magnesium 1.7 mg/dL (1.6-2.6); Osmolality,Calculated 294 (280-300); Potassium 3.5 mEq/L (3.5-4.5); Sodium 140 mEq/L (136-145); eGFR For African Americans > 60 (> 60); eGFR For Non-African Americans 54 (> 60)
[2017-08-07 04:59] LABS: INR 1.7; Prothrombin Time 18.6 Seconds (9.4-12.1)
[2017-08-07] MEDS: Doxycycline 100 MG CAPSULE PO SCH ×2 (05:12→17:17)
--- NOTE | 2017-08-07 08:17 | Internal Med Progress Note ---
Date of Encounter: 08/07/17 Time of Encounter: 08:15 - Assessment and plan (1) Atrial flutter with rapid ventricular response Current Visit: Yes Status: Acute Assessment and plan: Patient has known history of paroxysmal atrial fibrillation, on metoprolol at home. Presented with atrial fibrillation with rapid ventricular response. Started on IV Cardizem drip, will hold it today. Cardiology consult appreciated , started on Sotalol, received first dose last night; HR currently well- controlled; Supplemental oxygen. Continue by mouth metoprolol. On long-term anticoagulation with Coumadin, currently on hold for possible thoracentesis, will resume post-procedure. Echocardiogram shows preserved EF around 55%, Mild to moderately dilated right atrium, Mild mitral regurgitation, Mild tricuspid regurgitation. Continue telemetry monitoring and supportive care. (2) Pleural effusion Current Visit: Yes Status: Acute Assessment and plan: CT chest shows bilateral pleural effusion, right greater than left. Likely a result of tachycardia. We will consult IR for ultrasound-guided thoracentesis, INR is 1.7 today s/p Vit K. Continue PO Lasix. (3) Acute bronchitis Current Visit: Yes Status: Acute Assessment and plan: Improved. Continue doxycycline. Supplemental oxygen. Qualifiers: Bronchitis organism: unspecified organism Qualified Code(s): J20.9 - Acute bronchitis, unspecified (4) CKD (chronic kidney disease), stage III Current Visit: Yes Status: Chronic Assessment and plan: Serum creatinine noted to be stable, at baseline. Continue to monitor closely. (5) Hx of breast cancer Current Visit: Yes Status: Chronic (6) HTN (hypertension) Current Visit: Yes Status: Chronic Qualifiers: Hypertension type: essential hypertension Qualified Code(s): I10 - Essential (primary) hypertension - Subjective Interval history: Feels quite drowsy due to receiving Melatonin last night, and requests to stop that tonight! No chest pain, palpitations, lethargy, fatigue, nausea; - Constitutional Vitals: Temp Pulse Resp BP Pulse Ox 97.5 F L 70 18 92/60 99 08/07/17 07:38 08/07/17 07:38 08/07/17 07:38 08/07/17 07:38 08/07/17 07:38 General appearance: Present: A&O X 3, answers questions appropriately - Respiratory Respiratory exam: Present: decreased breath sounds (at right base), CTAB. Absent: accessory muscle use, rales, rhonchi, wheezes - Cardiovascular Cardiovascular exam: Present: irregular rhythm, +S1, +S2. Absent: diastolic murmur, gallop, rubs, systolic murmur - GI/Abdominal GI/Abdominal exam: Present: normal bowel sounds, soft, no peritoneal signs. Absent: distended, tenderness - Extremities Exam Extremities exam: Present: pedal edema (trace), warm, radial pulses palpable and symmetrical. Absent: calf tenderness, cyanotic - Neurological Exam Neurological exam: Present: CN II-XII intact, oriented X3, no focal deficits. Absent: pronater drift, facial droop, speech deficit Internal Medicine: Result - Labs CBC & Chem 7: 08/07/17 04:13 08/07/17 04:13 Labs: Short CBC 08/07/17 Range/Units 04:13 WBC 10.6 (4.3-11.1) K/mcL Hgb 12.5 (11.5-15.4) g/dL Hct 38.9 (35.3-44.9) % Plt Count 195 (140-400) K/mcL Neutrophils # 8.3 (1.6-8.9) K/mcL BMP 08/07/17 04:13 Sodium 140 Potassium 3.5 Chloride 108 Carbon Dioxide 24 BUN 24 H Creatinine 0.98 Glucose 104 H Calcium 8.3 L - ABG Interpretation ABG results: PT/INR, D-dimer PT 18.6 Seconds (9.4-12.1) H D 08/07/17 04:13 - Impressions Impressions Echocardiogram 08/05/17 09:46 Impressions: LVEF 50-55%. Normal LV chamber size and function. Indeterminate diastolic function. Normal right ventricular structure and function. Mild to moderately dilated right atrium. Mild mitral regurgitation. Mild tricuspid regurgitation. No pulmonary hypertension. Left Ventricular Wall Motion: Rest Echo Findings All wall segments showed normal motion. Findings: Study Quality * Technically adequate exam. ECG Findings * Atrial fibrillation. Left Ventricle * LVEF 50-55%. * Normal LV chamber size and function. * Indeterminate diastolic function. Right Ventricle * Normal right ventricular structure and function. Left Atrium * Moderately dilated left atrium. Right Atrium * Mild to moderately dilated right atrium. Interatrial Septum * Interatrial septum not well evaluated. Aortic Valve * Aortic valve not well visualized. * No aortic stenosis. * No aortic regurgitation. Mitral Valve * Normal mitral valve structure. * Mild mitral regurgitation. * No mitral stenosis. Tricuspid Valve * Normal tricuspid valve structure. * Mild tricuspid regurgitation. * No pulmonary hypertension. Pulmonic Valve * Normal pulmonic valve structure and function. * No pulmonic regurgitation. Aorta * Normally sized aortic root. Pericardium * The pericardium appears normal. IVC * Normal IVC dimensions and inspiratory collapse. Pulmonary Artery * Normal visualized portions of the main pulmonary artery. Consult Discharge Plan - Plan Referrals: Elizabeth Goldman MD [Primary Care Provider] - 08/12/17 1:45 pm (web request sent on 08/05/17)
[2017-08-07] MEDS: Furosemide 20 MG TABLET PO SCH ×2 (09:42→17:19)
[2017-08-07] MEDS: Metoprolol XL (24 HR) Succ 50 MG TAB.ER.24H PO SCH (09:42)
[2017-08-07] MEDS: Aspirin Enteric Coated 81 MG Tablet PO SCH (09:42)
--- NOTE | 2017-08-07 12:03 | Cardiology Progress Note ---
Date of Encounter: 08/07/17 Time of Encounter: 08:30 Assessment and Plan (1) Atrial fibrillation with RVR Current Visit: Yes Status: Acute Per cardiology: -Know paroxysmal atrial fibrillation. On admission a.fib RVR. -Currently sotalol 40mg Q12 hours and toprol 25mg daily. -TTE with LVEF 50-55%, no segmental wall motion abnormalities noted. -TSH, K, Mg within normal limits. -On coumadin for anticoagulation, INR supratherapuetic. Follows with anticoagulation clinic. INR today 1.7. -Average HR previous 12 hours noted to be 72, atrial fibrillation. -ECG on admission with a.fib RVR, HR 162. QT 273, QTc 363ms. -ECG today with atrial fibrillation, HR 72. QT 451, QTc 477ms. -ECG 08/19/16 with SB, HR 57. QT 460, QTc 454ms. -Per discussion with Dr.John Arevalo, will continue sotalol 40mg Q12 hours and toprol 25mg daily. -ECG daily. Continue telemetry monitoring. -Of note, now with subtherapeutic INR. If patient requires cardioversion, will need WILMAR prior. -Will continue to monitor. (2) CHF (congestive heart failure) Current Visit: Yes Status: Acute Per cardiology: -ADmitted with increased shortness of breath. -BNP on admission 577. -Chest CT with moderate right pleural effusion and small left pleural effusion. -Baseline weight 88kg. -Weight on admission 90.3kg, now down to 89kg today. -Was given IV lasix, now on po per primary service. -Euvolemic on exam today. -Strict i/os, daily weights. -Will continue to monitor. Qualifiers: Congestive heart failure type: diastolic Congestive heart failure chronicity: acute Qualified Code(s): I50.31 - Acute diastolic (congestive) heart failure Discussion w patient/family: The assessment and plan as outlined above was discussed with the patient and/or family members who expressed understanding and agreement. All questions were answered. Thank you for involving us in the care of your patient. Please call with any questions. Discuissed and reviewed with Dr.John Arevalo. Subjective Principal diagnosis: CHF, a.fib Interval history: Patient states she feels much better today. Objective Vital Signs, Last 4 Hours Temp Pulse Resp BP Pulse Ox 08/07/17 11:14 97.5 F L 99 17 107/73 95 08/07/17 10:57 18 97 General: Conversant, No Apparent Distress HEENT: Atraumatic, Normocephaly, Mucus Membranes Moist Neck: No JVD, Normal carotid pulses Cardiac: Normal S1 and S2, No Murmur, Other (Irregularly irregular. ) Lungs: Normal Breath Sounds, No Wheeze, Rales, Rhonchi Neuro: Alert and responsive, No focal deficits noted Abdomen: Soft, Non-Tender Skin: No rashes noted on visualized skin Musculoskeletal: No Chest Wall Tenderness Extremities: No Clubbing, No Cyanosis, No Edema, Normal Pulses Results 08/07/17 04:13 08/07/17 04:13 Lab Results Active Medications Acetaminophen (Tylenol) 650 mg PO Q6HR PRN PRN Reason: Mild Pain (1-3) Stop: 02/03/18 20:28 Albuterol Sulfate (Proventil Neb) 2.5 mg IH Q2H PRN; Protocol PRN Reason: Shortness Of Breath/Wheezing Stop: 02/04/18 11:51 Aspirin (Aspirin Ec) 81 mg PO DAILY KEYANA Stop: 02/04/18 09:01 Last Admin: 08/07/17 09:42 Dose: 81 mg Docusate Sodium (Colace) 100 mg PO BID KEYANA PRN Reason: Protocol Stop: 02/05/18 09:01 Last Admin: 08/07/17 10:11 Dose: Not Given Doxycycline Hyclate (Doxycycline) 100 mg PO Q12HR KEYANA Stop: 02/04/18 18:01 Last Admin: 08/07/17 05:12 Dose: 100 mg Furosemide (Lasix) 20 mg PO BIDDIURETIC KEYANA Stop: 02/05/18 08:46 Last Admin: 08/07/17 09:42 Dose: 20 mg Ipratropium [place] (Atrovent Neb) 0.5 mg IH [id number] KEYANA Stop: 02/04/18 16:01 Last Admin: 08/07/17 10:56 Dose: 0.5 mg Levalbuterol HCl (Xopenex) 0.63 mg IH [id number] KEYANA Stop: 02/04/18 16:01 Last Admin: 08/07/17 10:56 Dose: 0.63 mg Melatonin (Melatonin) 6 mg PO HS PRN PRN Reason: Insomnia Stop: 02/05/18 17:40 Last Admin: 08/06/17 21:25 Dose: 6 mg Metoprolol Succinate (Toprol Xl) 25 mg PO DAILY [facility] Stop: 02/04/18 09:01 Last Admin: 08/07/17 09:42 Dose: 25 mg Metoprolol Tartrate (Lopressor) 5 mg IVP Q6HR PRN PRN Reason: HR>110 Stop: 02/04/18 09:43 Last Admin: 08/06/17 00:47 Dose: 5 mg Montelukast Sodium (Singulair) 10 mg PO DAILY [facility] Stop: 02/04/18 09:01 Last Admin: 08/07/17 09:42 Dose: 10 mg Naloxone HCl (Narcan) 0.4 mg IVP Q2MIN PRN PRN Reason: Opioid Reversal Stop: 02/03/18 20:28 Sotalol HCl (Betapace) 40 mg PO Q12H [facility] Stop: 02/05/18 21:01 Last Admin: 08/07/17 09:42 Dose: 40 mg Warfarin Sodium (Coumadin Perpt) 1 each PO DAILY@1800 PRN PRN Reason: SEE COMMENTS Stop: 02/04/18 18:01 Warfarin Sodium (Coumadin) 4 mg PO ONCE ONE Stop: 08/07/17 18:01 Laboratory Tests 08/07/17 08/07/17 08/07/17 04:13 04:13 04:13 Hgb 12.5 INR 1.7 D Creatinine 0.98 - Imaging and Cardiology Chest Xray: report reviewed Echo: report reviewed - EKG Interpretation EKG results cardiology: personally reviewed (ECG today with atrial fibrilaltion , HR 71. QT 451, QTc 477.), other (Telemetry reviewed with average HR previous 12 hours noted to be 72, atrial fibrillation. Longest pause 3.4 seconds. PVCs noted.) Consult Discharge Plan - Plan Referrals: Elizabeth Goldman MD [Primary Care Provider] - 08/12/17 1:45 pm (web request sent on 08/05/17)
--- NOTE | 2017-08-07 14:11 | IR Procedure Note ---
Date of procedure: 08/07/17 Consent Obtained: Written consent Timeout: Correct patient and procedure verified, Correct site verified, Time out performed, Skin prep completed Local anesthetic: Lidocaine 1% Indications: Right pleural effusion Procedure Performed: Right thoracentesis Results/Findings: Sample to path Complications: None; Tolerated procedure well (Monitor on floor)
--- NOTE | 2017-08-07 15:47 | Electrocardiograph Report ---
[address] [address] Test Date: 2017-08-04 Pat Name: Judie Costa Department: 104 Room: 2A26 Gender: F Cake Former: [place] : 1935 Requested By: Vitaly French Order Number: [id number] Reading MD: Arvind Arevalo Measurements Intervals [place] Rate: 162 P: NE: 0 QRS: 81 QRSD: 94 T: 36 QT: 273 QTc: 363 Interpretive Statements ATRIAL FIBRILLATION WITH RAPID VENTRICULAR RESPONSE MINIMAL ST DEPRESSION ABNORMAL RHYTHM ECG Electronically Signed On 08-07-2017 15:45:50 EST by Arvind Arevalo
[2017-08-07] MEDS: *HR* Metoprolol 5 MG/5 ML VIAL IVP PRN (17:31)
--- NOTE | 2017-08-07 17:41 | Electrocardiograph Report ---
[place] [id number] Test Date: 2017-08-07 Pat Name: Judie Costa Department: 112 Room: 2A26 Gender: F [employer]: DANI : 1935 Requested By: Almaz Ferreira Order Number: [id number] Reading MD: Serge Brown DO Measurements Intervals Mears Rate: 73 P: [place]: 0 QRS: 81 QRSD: 102 T: 44 QT: 451 QTc: 477 Interpretive Statements ATRIAL FIBRILLATION NONSPECIFIC T-WAVE ABNORMALITY PROLONGED QT INTERVAL Electronically Signed On 08-07-2017 17:09:20 EST by Serge Brown DO
[2017-08-07] MEDS ORDERED: *HR* Warfarin 4 MG TABLET PO ONE (18:00)
[2017-08-07] MEDS ORDERED: *HR* Warfarin 7.5 MG TABLET PO SCH (18:00)
[2017-08-08] MEDS: Levalbuterol Neb 0.63 MG/3 ML IH SCH ×4 (04:39→21:22)
[2017-08-08] MEDS: Ipratropium Neb 0.5 MG NEBULIZER IH SCH ×4 (04:39→21:22)
[2017-08-08 05:38] LABS: BUN/Creatinine Ratio 20 (6-26); Blood Urea Nitrogen 19 mg/dL (7-20); Carbon Dioxide 24 mEq/L (19-29); Chloride 105 mEq/L (98-109); Glucose 86 mg/dL (70-99); Magnesium 1.6 mg/dL (1.6-2.6); Osmolality,Calculated 292 (280-300); Potassium 3.3 mEq/L (3.5-4.5); Sodium 140 mEq/L (136-145); eGFR For African Americans > 60 (> 60); eGFR For Non-African Americans 57 (> 60)
[2017-08-08] MEDS: Doxycycline 100 MG CAPSULE PO SCH ×2 (06:17→17:08)
[2017-08-08 06:29] LABS: INR 1.3; Prothrombin Time 13.8 Seconds (9.4-12.1)
[2017-08-08] MEDS: Metoprolol XL (24 HR) Succ 50 MG TAB.ER.24H PO SCH (08:52)
[2017-08-08] MEDS: Aspirin Enteric Coated 81 MG Tablet PO SCH (08:52)
[2017-08-08] MEDS: Furosemide 20 MG TABLET PO SCH ×2 (08:53→17:09)
[2017-08-08] MEDS: *HR* Metoprolol 5 MG/5 ML VIAL IVP PRN (10:47)
--- NOTE | 2017-08-08 10:48 | Internal Med Progress Note ---
Date of Encounter: 08/08/17 Time of Encounter: 10:10 - Assessment and plan (1) Hx of breast cancer Current Visit: Yes Status: Chronic Assessment and plan: Follow-up with oncology as outpatient. (2) Pleural effusion Current Visit: Yes Status: Acute Assessment and plan: CT chest shows bilateral pleural effusion, right greater than left. Likely a result of tachycardia. She is due 1 status post thoracentesis. About 450 mL of fluid said to have removed. She is clinically improved. Interventional radiology input appreciated. (3) Acute bronchitis Current Visit: Yes Status: Acute Assessment and plan: Improved. Continue doxycycline. Supplemental oxygen. Qualifiers: Bronchitis organism: unspecified organism Qualified Code(s): J20.9 - Acute bronchitis, unspecified (4) HTN (hypertension) Current Visit: Yes Status: Chronic Assessment and plan: Controlled, continue current meds. Qualifiers: Hypertension type: essential hypertension Qualified Code(s): I10 - Essential (primary) hypertension (5) CKD (chronic kidney disease), stage III Current Visit: Yes Status: Chronic Assessment and plan: Serum creatinine noted to be stable, at baseline. Continue to monitor closely. (6) Atrial fibrillation with RVR Current Visit: Yes Status: Acute Assessment and plan: HR is currently uncontrolled On Metoprolol and Sotalol Continue same Carfdio is following Replace K (3.3) with 40meq Potassium Resume warfarin INR subtherapeutic - Subjective Interval history: Seen and evaluated at the bedside with her son. She is admitted and being managed with atrial fibrillation with rapid ventricular response, CHF with preserved ejection fraction excess sedation, pleural effusion, and acute bronchitis. She complainsof having chest tightness, she denies chest pain. Her heart rate has been between 105-116 bpm overnight. Her potassium is also normal at 3.3. - Constitutional Vitals: Temp Pulse Resp BP Pulse Ox 97.6 F 116 16 116/83 96 08/08/17 07:02 08/08/17 07:02 08/08/17 07:02 08/08/17 07:02 08/08/17 07:02 General appearance: Present: A&O X 3, pleasant, no acute distress, obese, answers questions appropriately - Head Head exam: Present: atraumatic, normocephalic - Eye Eye exam: Present: PERRL, conjuntiva pink, sclera anicteric Pupils: Present: PERRL - Neck Neck exam general surgery: Present: supple, trachea midline. Absent: lymphadenopathy - Respiratory Respiratory exam: Present: CTAB. Absent: accessory muscle use, rales, rhonchi, wheezes Additional comments: Posterior chest wall dressings clean and dry - Cardiovascular Cardiovascular exam: Present: RRR, +S1, +S2. Absent: diastolic murmur, gallop, rubs, systolic murmur - GI/Abdominal GI/Abdominal exam: Present: normal bowel sounds, soft, no peritoneal signs. Absent: distended, tenderness - Extremities Exam Extremities exam: Present: warm, radial pulses palpable and symmetrical. Absent : calf tenderness, cyanotic, pedal edema - Neurological Exam Neurological exam: Present: alert, CN II-XII intact, oriented X3, no focal deficits. Absent: pronater drift, facial droop, speech deficit - Skin Skin exam: Present: dry, intact Internal Medicine: Result - Labs CBC & Chem 7: 08/07/17 04:13 08/08/17 04:55 Labs: BMP 08/08/17 04:55 Sodium 140 Potassium 3.3 L Chloride 105 Carbon Dioxide 24 BUN 19 Creatinine 0.94 Glucose 86 Calcium 8.0 L - ABG Interpretation ABG results: PT/INR, D-dimer PT 13.8 Seconds (9.4-12.1) H 08/08/17 04:55 - Impressions Impressions Thoracentesis Ultrasound 08/07/17 07:43 IMPRESSION: 1. Successful ultrasound guided right thoracentesis. D/ / David Araya MD / David Araya MD Interpreting Provider: David Araya MD Chest X-Ray 08/07/17 14:11 IMPRESSION: Decreased volume right pleural effusion after thoracentesis. No pneumothorax. Persistent small left effusion. D/ / Melquiades Ferrer / Melquiades Ferrer Interpreting Provider: Melquiades Ferrer Consult Discharge Plan - Plan Referrals: Elizabeth Goldman MD [Primary Care Provider] - 08/12/17 1:45 pm (web request sent on 08/05/17)
--- NOTE | 2017-08-08 14:09 | Cardiology Progress Note ---
Date of Encounter: 08/08/17 Time of Encounter: 11:00 Assessment and Plan (1) Atrial fibrillation with RVR Current Visit: Yes Status: Acute Per cardiology: -Know paroxysmal atrial fibrillation. On admission a.fib RVR. -Currently sotalol 40mg Q12 hours and toprol 25mg daily. -TTE with LVEF 50-55%, no segmental wall motion abnormalities noted. -TSH, K, Mg within normal limits. -On coumadin for anticoagulation, INR supratherapuetic. Follows with anticoagulation clinic. INR today 1.3. -Average HR previous 12 hours noted to be 112, atrial fibrillation with RVR. HR 125 currently. -ECG on admission with a.fib RVR, HR 162. QT 273, QTc 363ms. -ECG today atrial fibrillation with RVR, HR 125, QT/QTC 345/419. s/p 4th dose. -ECG 08/07/17 atrial fibrillation, HR 72. QT 451, QTc 477ms. -Continue sotalol 40 mg Q12 Hrs. On toprol XL 25 mg daily. Per discussion with Dr. Arvind Arevalo will start cardizem gtt to keep HR less than 100. -Of note, now with subtherapeutic INR. If patient requires cardioversion, will need WILMAR prior. Pharmacy dosing coumadin. -Will continue to monitor. Discussion w patient/family: The assessment and plan as outlined above was discussed with the patient and/or family members who expressed understanding and agreement. All questions were answered. Thank you for involving us in the care of your patient. Please call with any questions. Subjective Principal diagnosis: CHF, a.fib Interval history: No new complaints. Continues to be in atrial fibrillation with RVR Objective Vital Signs, Last 4 Hours Temp Pulse Resp BP Pulse Ox 08/08/17 11:29 17 96 08/08/17 11:04 97.8 F 120 17 90/64 96 General: Conversant, No Apparent Distress HEENT: Atraumatic, Normocephaly, Mucus Membranes Moist Neck: No JVD, Normal carotid pulses Cardiac: Other (Irregularly irregular) Lungs: Normal Breath Sounds, No Wheeze, Rales, Rhonchi Neuro: Alert and responsive, No focal deficits noted Abdomen: Soft, Non-Tender Skin: No rashes noted on visualized skin Musculoskeletal: No Chest Wall Tenderness Extremities: No Clubbing, No Cyanosis, No Edema, Normal Pulses Results 08/07/17 04:13 08/08/17 04:55 Lab Results 08/08/17 08/08/17 04:55 04:55 INR 1.3 Sodium 140 Potassium 3.3 L Chloride 105 Carbon Dioxide 24 BUN 19 Creatinine 0.94 Glucose 86 Calcium 8.0 L Magnesium 1.6 - EKG Interpretation EKG results cardiology: personally reviewed Consult Discharge Plan - Plan Referrals: Elizabeth Goldman MD [Primary Care Provider] - 08/12/17 1:45 pm (web request sent on 08/05/17)
[2017-08-08] MEDS: dilTIAZem HCl 100 MG in D5% in Water 50 ML IVC SCH (14:27)
[2017-08-08] MEDS ORDERED: *HR* Warfarin 4 MG TABLET PO ONE (18:00)
[2017-08-09] MEDS: Levalbuterol Neb 0.63 MG/3 ML IH SCH ×4 (03:50→21:33)
[2017-08-09] MEDS: Ipratropium Neb 0.5 MG NEBULIZER IH SCH ×4 (03:50→21:33)
[2017-08-09] MEDS: dilTIAZem HCl 100 MG in D5% in Water 50 ML IVC SCH (04:11)
[2017-08-09 05:25] LABS: INR 1.2; Prothrombin Time 13.5 Seconds (9.4-12.1)
[2017-08-09 05:46] LABS: BUN/Creatinine Ratio 20 (6-26); Blood Urea Nitrogen 21 mg/dL (7-20); Calcium 8.3 mg/dL (8.6-10.8); Chloride 106 mEq/L (98-109); Glucose 99 mg/dL (70-99); Osmolality,Calculated 289 (280-300); Potassium 3.6 mEq/L (3.5-4.5); Sodium 138 mEq/L (136-145); eGFR For African Americans > 60 (> 60); eGFR For Non-African Americans 51 (> 60)
[2017-08-09] MEDS: Doxycycline 100 MG CAPSULE PO SCH ×2 (05:55→17:22)
[2017-08-09 06:18] LABS: Carbon Dioxide 27 mEq/L (19-29)
--- NOTE | 2017-08-09 07:27 | Cardiology Progress Note ---
Date of Encounter: 08/09/17 Time of Encounter: 07:25 Assessment and Plan (1) Atrial fibrillation with RVR Current Visit: Yes Status: Acute Per cardiology: Know paroxysmal atrial fibrillation. On admission a.fib RVR. TTE with LVEF 50-55 %, no segmental wall motion abnormalities noted. TSH, K, Mg within normal limits. Currently sotalol 40mg Q12 hours-- s/p 5 doses , toprol XL25mg daily, and cardizem gtt-- currently on 7.5 mg/h. We'll start Cardizem 60 mg by mouth every 6 hours and attempt to wean off IV Cardizem drip. SBp 110's-130's. Average HR previous 12 hours noted to be 80, atrial fibrillation with RVR. HR 87 currently. ECG on admission with a.fib RVR, HR 162. QT 273, QTc 363ms. ECG pending. On coumadin for anticoagulation, INR supratherapuetic-- received vitamin K for thoracentesis.. Follows with anticoagulation clinic. INR today 1.2. Possible WILMAR /DCCV in am. (2) CHF (congestive heart failure) Current Visit: Yes Status: Acute Per cardiology: BNP on admission 577. Chest CT with moderate right pleural effusion and small left pleural effusion. S/p thoracentesis. Baseline weight 88kg. On IV Lasxi 2omg BID. Net I&O during stay +2456ml per records. Qualifiers: Congestive heart failure type: diastolic Congestive heart failure chronicity: acute Qualified Code(s): I50.31 - Acute diastolic (congestive) heart failure (3) CKD (chronic kidney disease), stage III Current Visit: Yes Status: Chronic Per Cardiology: CKD 3a, stable. On lasix. Discussion w patient/family: The assessment and plan as outlined above was discussed with the patient and/or family members who expressed understanding and agreement. All questions were answered. Thank you for involving us in the care of your patient. Please call with any questions. Subjective Principal diagnosis: CHF, a.fib Interval history: Patient seen today with daughter at bedside. She reports short of breath has improved. She denies any palpitations or chest pain. Denies any active bleeding or blood loss. Reports already on Coumadin at home. Objective Vital Signs, Last 4 Hours Temp Pulse Resp BP Pulse Ox 08/09/17 03:43 97.9 F 68 17 131/65 97 General: Conversant, No Apparent Distress HEENT: Atraumatic, Normocephaly, Mucus Membranes Moist Neck: No JVD, Normal carotid pulses Cardiac: Normal S1 and S2, No Murmur, Other (Irregularly irregular) Lungs: Normal Breath Sounds, No Wheeze, Rales, Rhonchi Neuro: Alert and responsive, No focal deficits noted Abdomen: Soft, Non-Tender Skin: No rashes noted on visualized skin Musculoskeletal: No Chest Wall Tenderness Extremities: No Clubbing, No Cyanosis, No Edema, Normal Pulses Results 08/07/17 04:13 08/09/17 05:04 Lab Results Laboratory Tests 08/05/17 08/05/17 08/08/17 05:41 05:41 04:55 INR 4.4 H* Creatinine Est GFR (Non-Af Amer) Magnesium 1.6 TSH 1.118 08/09/17 08/09/17 05:04 05:04 INR 1.2 Creatinine 1.03 Est GFR (Non-Af Amer) 51 L Magnesium TSH ITS Impressions Chest X-Ray 08/04/17 12:38 IMPRESSION: Small right effusion and associated right basilar airspace disease, atelectasis versus pneumonia. Follow-up radiographs recommended to document resolution. D/ / Janes Dang MD / Janes Dang MD Interpreting Provider: Janes Dang MD Chest CTA 08/04/17 13:16 IMPRESSION: 1. No evidence of pulmonary embolism. 2. Moderate right and small left pleural effusions with adjacent airspace disease, atelectasis versus pneumonia versus edema. 3. Bronchial wall thickening. A component of bronchitis or reactive airways disease is considered. 4. Small hiatal hernia. Cholelithiasis. D/ / Chris Mcknight MD / Chris Mcknight MD Interpreting Provider: Chris Mcknight MD Echocardiogram 08/05/17 09:46 Impressions: LVEF 50-55%. Normal LV chamber size and function. Indeterminate diastolic function. Normal right ventricular structure and function. Mild to moderately dilated right atrium. Mild mitral regurgitation. Mild tricuspid regurgitation. No pulmonary hypertension. Left Ventricular Wall Motion: Rest Echo Findings All wall segments showed normal motion. Findings: Study Quality * Technically adequate exam. ECG Findings * Atrial fibrillation. Left Ventricle * LVEF 50-55%. * Normal LV chamber size and function. * Indeterminate diastolic function. Right Ventricle * Normal right ventricular structure and function. Left Atrium * Moderately dilated left atrium. Right Atrium * Mild to moderately dilated right atrium. Interatrial Septum * Interatrial septum not well evaluated. Aortic Valve * Aortic valve not well visualized. * No aortic stenosis. * No aortic regurgitation. Mitral Valve * Normal mitral valve structure. * Mild mitral regurgitation. * No mitral stenosis. Tricuspid Valve * Normal tricuspid valve structure. * Mild tricuspid regurgitation. * No pulmonary hypertension. Pulmonic Valve * Normal pulmonic valve structure and function. * No pulmonic regurgitation. Aorta * Normally sized aortic root. Pericardium * The pericardium appears normal. IVC * Normal IVC dimensions and inspiratory collapse. Pulmonary Artery * Normal visualized portions of the main pulmonary artery. Thoracentesis Ultrasound 08/07/17 07:43 IMPRESSION: 1. Successful ultrasound guided right thoracentesis. D/ / David Araya MD / David Araya MD Interpreting Provider: David Araya MD Chest X-Ray 08/07/17 14:11 IMPRESSION: Decreased volume right pleural effusion after thoracentesis. No pneumothorax. Persistent small left effusion. D/ / Melquiades Ferrer / Melquiades Ferrer Interpreting Provider: Melquiades Ferrer Intake & Output 08/06/17 08/07/17 08/08/17 08/09/17 23:59 23:59 23:59 23:59 Intake Total 705 / 705 890 / 890 530.0 / 530.0 Output Total 0 / 0 Balance 705 / 705 890 / 890 530.0 / 530.0 Weight 88.507 kg 89 kg 91.2 kg 88.269 kg Active Medications Acetaminophen (Tylenol) 650 mg PO Q6HR PRN PRN Reason: Mild Pain (1-3) Stop: 02/03/18 20:28 Albuterol Sulfate (Proventil Neb) 2.5 mg IH Q2H PRN; Protocol PRN Reason: Shortness Of Breath/Wheezing Stop: 02/04/18 11:51 Aspirin (Aspirin Ec) 81 mg PO DAILY [facility] Stop: 02/04/18 09:01 Last Admin: 08/08/17 08:52 Dose: 81 mg Docusate Sodium (Colace) 100 mg PO BID KEYANA PRN Reason: Protocol Stop: 02/05/18 09:01 Last Admin: 08/08/17 20:13 Dose: 100 mg Doxycycline Hyclate (Doxycycline) 100 mg PO Q12HR [facility] Stop: 02/04/18 18:01 Last Admin: 08/09/17 05:55 Dose: 100 mg Furosemide (Lasix) 20 mg PO BIDDIURETIC [facility] Stop: 02/05/18 08:46 Last Admin: 08/08/17 17:09 Dose: 20 mg Diltiazem HCl 100 mg/ Dextrose 50 mls @ 2.5 mls/hr IVC .Q20H KEYANA; 5 MG/HR PRN Reason: Protocol Stop: 02/07/18 14:16 Last Titration: 08/09/17 06:29 Dose: 15 mg/hr, 7.5 mls/hr Ipratropium [place] (Atrovent Neb) 0.5 mg IH [id number] [facility] Stop: 02/04/18 16:01 Last Admin: 08/09/17 03:50 Dose: Not Given Levalbuterol HCl (Xopenex) 0.63 mg IH [id number] [facility] Stop: 02/04/18 16:01 Last Admin: 08/09/17 03:50 Dose: Not Given Melatonin (Melatonin) 6 mg PO HS PRN PRN Reason: Insomnia Stop: 02/05/18 17:40 Last Admin: 08/06/17 21:25 Dose: 6 mg Metoprolol Succinate (Toprol Xl) 25 mg PO DAILY [facility] Stop: 02/04/18 09:01 Last Admin: 08/08/17 08:52 Dose: 25 mg Metoprolol Tartrate (Lopressor) 5 mg IVP Q6HR PRN PRN Reason: HR>110 Stop: 02/04/18 09:43 Last Admin: 08/08/17 10:47 Dose: 5 mg Montelukast Sodium (Singulair) 10 mg PO DAILY [facility] Stop: 02/04/18 09:01 Last Admin: 08/08/17 08:53 Dose: 10 mg Naloxone HCl (Narcan) 0.4 mg IVP Q2MIN PRN PRN Reason: Opioid Reversal Stop: 02/03/18 20:28 Sotalol HCl (Betapace) 40 mg PO Q12H [facility] Stop: 02/05/18 21:01 Last Admin: 08/08/17 20:13 Dose: 40 mg Warfarin Sodium (Coumadin Perpt) 1 each PO DAILY@1800 PRN PRN Reason: SEE COMMENTS Stop: 02/04/18 18:01 - EKG Interpretation EKG results cardiology: other (tele shows afib 80's) Consult Discharge Plan - Plan Referrals: Elizabeth Goldman MD [Primary Care Provider] - 08/12/17 1:45 pm (web request sent on 08/05/17)
[2017-08-09] MEDS: Metoprolol XL (24 HR) Succ 50 MG TAB.ER.24H PO SCH (09:30)
[2017-08-09] MEDS: Furosemide 20 MG TABLET PO SCH ×2 (09:33→17:22)
[2017-08-09] MEDS: Aspirin Enteric Coated 81 MG Tablet PO SCH (09:34)
[2017-08-09] MEDS ORDERED: 0.9 % Sodium Chloride 500 ML ONE (09:43)
--- NOTE | 2017-08-09 10:24 | Internal Med Progress Note ---
Date of Encounter: 08/09/17 Time of Encounter: 10:24 - Assessment and plan (1) Hx of breast cancer Current Visit: Yes Status: Chronic Assessment and plan: Follow-up with oncology as outpatient. (2) Pleural effusion Current Visit: Yes Status: Acute Assessment and plan: CT chest shows bilateral pleural effusion, right greater than left. Likely a result of tachycardia. She is day 2 status post thoracentesis. About 450 mL of fluid said to have removed. She is clinically improved. Interventional radiology input appreciated. (3) Acute bronchitis Current Visit: Yes Status: Acute Assessment and plan: Improved. Continue doxycycline. Supplemental oxygen. Qualifiers: Bronchitis organism: unspecified organism Qualified Code(s): J20.9 - Acute bronchitis, unspecified (4) HTN (hypertension) Current Visit: Yes Status: Chronic Assessment and plan: Controlled, continue current meds. Qualifiers: Hypertension type: essential hypertension Qualified Code(s): I10 - Essential (primary) hypertension (5) CKD (chronic kidney disease), stage III Current Visit: Yes Status: Chronic Assessment and plan: Serum creatinine noted to be stable, at baseline. Continue to monitor closely. (6) Atrial fibrillation with RVR Current Visit: Yes Status: Acute Assessment and plan: HR is currently controlled K WNL this a.m Continue Warfain, INR 1.2 today For DCCV/WILMAR a.m per cardio-patient states she is still trying to make up her mind regarding this, continue cardizem drip, sotalol and metoprolol - Subjective Interval history: Seen and evaluated at the bedside with her son and daughter She is admitted and being managed with atrial fibrillation with rapid ventricular response, CHF with preserved ejection fraction excess sedation, pleural effusion, and acute bronchitis. She has no new complains HR is controlled on cardizem drip Cardiology is following, plan is for WILMAR/DCCV a.m - Constitutional Vitals: Temp Pulse Resp BP Pulse Ox 97.9 F 68 17 131/65 97 08/09/17 03:43 08/09/17 03:43 08/09/17 03:43 08/09/17 03:43 08/09/17 09:26 General appearance: Present: A&O X 3, pleasant, no acute distress, obese, answers questions appropriately - Head Head exam: Present: atraumatic, normocephalic - Eye Eye exam: Present: PERRL, conjuntiva pink, sclera anicteric Pupils: Present: PERRL - Neck Neck exam general surgery: Present: supple, trachea midline. Absent: lymphadenopathy - Respiratory Respiratory exam: Present: CTAB. Absent: accessory muscle use, rales, rhonchi, wheezes - Cardiovascular Cardiovascular exam: Present: irregular rhythm, +S1, +S2. Absent: diastolic murmur, gallop, rubs, systolic murmur - GI/Abdominal GI/Abdominal exam: Present: normal bowel sounds, soft, no peritoneal signs. Absent: distended, tenderness - Extremities Exam Extremities exam: Present: warm, radial pulses palpable and symmetrical. Absent : calf tenderness, cyanotic, pedal edema - Neurological Exam Neurological exam: Present: alert, CN II-XII intact, oriented X3, no focal deficits. Absent: pronater drift, facial droop, speech deficit - Skin Skin exam: Present: dry, intact Internal Medicine: Result - Labs CBC & Chem 7: 08/07/17 04:13 08/09/17 05:04 Labs: BMP 08/09/17 05:04 Sodium 138 Potassium 3.6 Chloride 106 Carbon Dioxide 27 BUN 21 H Creatinine 1.03 Glucose 99 Calcium 8.3 L - ABG Interpretation ABG results: PT/INR, D-dimer PT 13.5 Seconds (9.4-12.1) H 08/09/17 05:04 Consult Discharge Plan - Plan Referrals: Elizabeth Goldman MD [Primary Care Provider] - 08/12/17 1:45 pm (web request sent on 08/05/17)
[2017-08-09] MEDS: dilTIAZem HCl 60 MG TABLET PO SCH ×4 (10:41→20:58)
--- NOTE | 2017-08-09 15:05 | Event Note ---
Date of Encounter: 08/09/17 Time of Encounter: 15:00 - Cardiology Event Note I had multiple lengthy discussions with patient and family today. Patient is agreeable for WILMAR/DCCV tomorrow as planned. Remains on sotalol. IV Cardizem gtt down to 2.5mg/hr, will continue to attempt to wean off. All questions answered.
[2017-08-09] MEDS ORDERED: *HR* Warfarin 4 MG TABLET PO ONE (18:00)
[2017-08-10 03:15] LABS: INR 1.2; Prothrombin Time 13.1 Seconds (9.4-12.1)
[2017-08-10] MEDS: Ipratropium Neb 0.5 MG NEBULIZER IH SCH ×4 (04:18→21:10)
[2017-08-10] MEDS: Levalbuterol Neb 0.63 MG/3 ML IH SCH ×4 (04:18→21:10)
[2017-08-10] MEDS: Doxycycline 100 MG CAPSULE PO SCH ×2 (05:46→17:54)
--- NOTE | 2017-08-10 08:23 | Event Note ---
Date of Encounter: 08/10/17 Time of Encounter: 08:20 - Cardiology Event Note Laboratory Tests 08/10/17 02:29 INR 1.[address] Brown. All questions answered. Dr. Brown discussed procedure on phone with daughter. Per Dr. Brown, will start Lovenox 90mg PO BID-- 1st dose now. On Coumadin, INR 1.2-- received Vit. K for thoracentesis. Plan for WILMAR/DCCV today. Off cardizem gtt, remains afib in the 100's at rest. S/ p 7 doses of sotalol. Active Medications Acetaminophen (Tylenol) 650 mg PO Q6HR PRN PRN Reason: Mild Pain (1-3) Stop: 02/03/18 20:28 Albuterol Sulfate (Proventil Neb) 2.5 mg IH Q2H PRN; Protocol PRN Reason: Shortness Of Breath/Wheezing Stop: 02/04/18 11:51 Aspirin (Aspirin Ec) 81 mg PO DAILY [facility] Stop: 02/04/18 09:01 Last Admin: 08/09/17 09:34 Dose: 81 mg Diltiazem HCl (Cardizem) 60 mg PO QID [facility] Stop: 02/08/18 09:46 Last Admin: 08/10/17 08:50 Dose: 60 mg Docusate Sodium (Colace) 100 mg PO BID [facility] PRN Reason: Protocol Stop: 02/05/18 09:01 Last Admin: 08/09/17 21:00 Dose: Not Given Doxycycline Hyclate (Doxycycline) 100 mg PO Q12HR [facility] Stop: 02/04/18 18:01 Last Admin: 08/10/17 05:46 Dose: 100 mg Enoxaparin Sodium (Lovenox) 90 mg 1 mg/kg (90 mg) SQ Q12H [facility] PRN Reason: Protocol Stop: 02/09/18 10:01 Furosemide (Lasix) 20 mg PO BIDDIURETIC [facility] Stop: 02/05/18 08:46 Last Admin: 08/09/17 17:22 Dose: 20 mg Diltiazem HCl 100 mg/ Dextrose 50 mls @ 2.5 mls/hr IVC .Q20H [facility]; 5 MG/HR PRN Reason: Protocol Stop: 02/07/18 14:16 Last Titration: 08/09/17 18:27 Dose: 0 mg/hr, 0 mls/hr Ipratropium [place] (Atrovent Neb) 0.5 mg IH [id number] [facility] Stop: 02/04/18 16:01 Last Admin: 08/10/17 04:18 Dose: Not Given Levalbuterol HCl (Xopenex) 0.63 mg IH [id number] [facility] Stop: 02/04/18 16:01 Last Admin: 08/10/17 04:18 Dose: Not Given Melatonin (Melatonin) 6 mg PO HS PRN PRN Reason: Insomnia Stop: 02/05/18 17:40 Last Admin: 08/06/17 21:25 Dose: 6 mg Metoprolol Succinate (Toprol Xl) 25 mg PO DAILY [facility] Stop: 02/04/18 09:01 Last Admin: 08/09/17 09:30 Dose: 25 mg Metoprolol Tartrate (Lopressor) 5 mg IVP Q6HR PRN PRN Reason: HR>110 Stop: 02/04/18 09:43 Last Admin: 08/08/17 10:47 Dose: 5 mg Montelukast Sodium (Singulair) 10 mg PO DAILY [facility] Stop: 02/04/18 09:01 Last Admin: 08/09/17 09:33 Dose: 10 mg Naloxone HCl (Narcan) 0.4 mg IVP Q2MIN PRN PRN Reason: Opioid Reversal Stop: 02/03/18 20:28 Sotalol HCl (Betapace) 40 mg PO Q12H [facility] Stop: 02/05/18 21:01 Last Admin: 08/09/17 20:58 Dose: 40 mg Warfarin Sodium (Coumadin Perpt) 1 each PO DAILY@1800 PRN PRN Reason: SEE COMMENTS Stop: 02/04/18 18:01
[2017-08-10] MEDS: dilTIAZem HCl 60 MG TABLET PO SCH ×4 (08:50→21:42)
--- NOTE | 2017-08-10 10:32 | Internal Med Progress Note ---
<Cr García - Last Filed: 08/10/17 12:48> Date of Encounter: 08/10/17 Time of Encounter: 10:29 - Assessment and plan (1) Atrial fibrillation with RVR Current Visit: Yes Status: Acute Assessment and plan: Cardiology is following, appreciate input Currently on sotalol 40 mg, Toprol, attempting to wean Cardizem gtt to PO Plan is for DCCV/WILMAR today HR is currently controlled K WNL yesterday Anticoagulation held for thoracentesis Continue bridge with Lovenox until INR is therapeutic, 1.2 today (2) Pleural effusion Current Visit: Yes Status: Acute Assessment and plan: CT chest shows bilateral pleural effusion, right greater than left. Likely a result of tachycardia. She is day 3 status post thoracentesis. About 450 mL of fluid said to have been removed. She is clinically improved. Interventional radiology input appreciated. (3) Acute bronchitis Current Visit: Yes Status: Acute Assessment and plan: Improved. Continue supplemental oxygen. Stop doxycycline Qualifiers: Bronchitis organism: unspecified organism Qualified Code(s): J20.9 - Acute bronchitis, unspecified (4) Hx of breast cancer Current Visit: Yes Status: Chronic Assessment and plan: Follow-up with oncology as outpatient. (5) HTN (hypertension) Current Visit: Yes Status: Chronic Assessment and plan: Controlled, continue current meds. Qualifiers: Hypertension type: essential hypertension Qualified Code(s): I10 - Essential (primary) hypertension (6) CKD (chronic kidney disease), stage III Current Visit: Yes Status: Chronic Assessment and plan: Serum creatinine noted to be stable, at baseline. Continue to monitor closely. - Subjective Interval history: 82-year-old female presented with acute bronchitis and A. fib with RVR. Contributory medical history: A. fib since 2014. CT angiogram chest no evidence of PE, moderate right and small left effusions and atelectasis versus pneumonia versus edema, bronchial wall thickening Patient seen and examined at bedside this morning. Breathing improved, denies chest pain or other new complaints - Constitutional Vitals: Temp Pulse Resp BP Pulse Ox 98.1 F 105 16 104/67 94 08/10/17 07:10 08/10/17 07:10 08/10/17 07:10 08/10/17 07:10 08/10/17 07:10 General appearance: Present: A&O X 3, pleasant, no acute distress, obese, answers questions appropriately - Respiratory Respiratory exam: Present: CTAB. Absent: accessory muscle use, rales, rhonchi, wheezes - Cardiovascular Cardiovascular exam: Present: irregular rhythm, +S1, +S2. Absent: diastolic murmur, gallop, rubs, systolic murmur - GI/Abdominal GI/Abdominal exam: Present: normal bowel sounds, soft, no peritoneal signs. Absent: distended, tenderness - Extremities Exam Extremities exam: Present: warm, radial pulses palpable and symmetrical. Absent : calf tenderness, cyanotic, pedal edema - Neurological Exam Neurological exam: Present: alert, oriented X3, no focal deficits Internal Medicine: Result - Labs CBC & Chem 7: 08/07/17 04:13 08/09/17 05:04 - ABG Interpretation ABG results: PT/INR, D-dimer PT 13.1 Seconds (9.4-12.1) H 08/10/17 02:29 Consult Discharge Plan - Plan Referrals: Elizabeth Goldman MD [Primary Care Provider] - 08/12/17 1:45 pm (web request sent on 08/05/17) <Mendez Anaya - Last Filed: 08/10/17 13:28> Date of Encounter: 08/10/17 - Assessment and plan (1) Hx of breast cancer Current Visit: Yes Status: Chronic (2) Pleural effusion Current Visit: Yes Status: Acute (3) Acute bronchitis Current Visit: Yes Status: Acute Qualifiers: Bronchitis organism: unspecified organism Qualified Code(s): J20.9 - Acute bronchitis, unspecified (4) HTN (hypertension) Current Visit: Yes Status: Chronic Qualifiers: Hypertension type: essential hypertension Qualified Code(s): I10 - Essential (primary) hypertension (5) CKD (chronic kidney disease), stage III Current Visit: Yes Status: Chronic (6) Atrial fibrillation with RVR Current Visit: Yes Status: Acute - Constitutional Vitals: Temp Pulse Resp BP Pulse Ox 97.6 F 57 16 135/80 95 08/10/17 11:02 08/10/17 11:02 08/10/17 11:02 08/10/17 11:02 08/10/17 11:02 Internal Medicine: Result - Labs CBC & Chem 7: 08/07/17 04:13 08/09/17 05:04 - ABG Interpretation ABG results: PT/INR, D-dimer PT 13.1 Seconds (9.4-12.1) H 08/10/17 02:29 - Attending Attestation I have independently seen and examined this patient on 08/10/17 She is admitted and being managed for refractory Afib with RVR, bronchitis, pleural effusion. She denies new complains Exam: VSS, NAD, AAOX3, Chest is CTAB, S1, S2, irregular, tachycardic, HR 106. Abdomen is obese, not tender, no pedal edema Labs and Imaging reviewed: INR sub-therapeutic. Chem WNL For WILMAR/DCCV today. D/C doxycycline, day 03/13. Continue other management Rest as in resident physician's documentation
[2017-08-10] MEDS: *HR* Enoxaparin 100 MG/ML SYRINGE SQ SCH ×2 (11:17→21:44)
[2017-08-10] MEDS: Metoprolol XL (24 HR) Succ 50 MG TAB.ER.24H PO SCH (11:19)
[2017-08-10] MEDS: Aspirin Enteric Coated 81 MG Tablet PO SCH (11:20)
[2017-08-10] MEDS: Furosemide 20 MG TABLET PO SCH ×2 (11:20→17:54)
[2017-08-10] MEDS: dilTIAZem HCl 100 MG in D5% in Water 50 ML IVC SCH (11:21)
[2017-08-10] MEDS ORDERED: Tetracaine/Benzocaine/Butamben 200MG/SPRAY (100SPY/BOT) MM ONE (13:46)
[2017-08-10] MEDS ORDERED: Lidocaine Viscous Oral Soln 15 ML SOLUTION MM PRN (13:46)
[2017-08-10] MEDS ORDERED: 0.9 % Sodium Chloride 500 ML IVC ONE (13:46)
[2017-08-10] MEDS: *HR* FentaNYL (PF) 100 MCG/2 ML VIAL IVP PRN ×3 (14:45→15:14)
[2017-08-10] MEDS: *HR* Midazolam HCl 5 MG/5 ML VIAL IVP PRN ×3 (14:45→15:14)
--- NOTE | 2017-08-10 16:34 | Event Note ---
Date of Encounter: 08/10/17 Time of Encounter: 14:32 - Cardiology Event Note Discussed with Dr. Brown. Cardioversion was not successful. We will rate control overnight with cardizem gtt and discuss further recommendation with electrophysiology tomorrow.
[2017-08-10] MEDS ORDERED: *HR* Warfarin 5 MG TABLET PO ONE (18:00)
[2017-08-11] MEDS: Ipratropium Neb 0.5 MG NEBULIZER IH SCH ×3 (04:05→15:55)
[2017-08-11] MEDS: Levalbuterol Neb 0.63 MG/3 ML IH SCH ×3 (04:05→15:55)
[2017-08-11] MEDS: dilTIAZem HCl 100 MG in D5% in Water 50 ML IVC SCH (04:22)
[2017-08-11 05:25] LABS: Basophils # 0.1 K/mcL (0.0-0.2); Basophils % 0.9 %; Eosinophils # 0.2 K/mcL (0.0-0.6); Eosinophils % 2.9 %; Hematocrit 43.6 % (35.3-44.9); Hemoglobin 14.5 g/dL (11.5-15.4); Immature Granulocytes % 0.9 % (0-4); Lymphocytes % 27.2 %; Mean Corpuscular HGB Conc 33.3 g/dL (31.6-35.5); Mean Corpuscular Hemoglobin 29.5 pg (28.0-33.3); Mean Corpuscular Volume 88.8 fL (83.0-100.0); Monocytes # 0.8 K/mcL (0.0-1.3); Monocytes % 11.2 %; Neutrophils # 4.3 K/mcL (1.6-8.9); Platelet Count 200 K/mcL (140-400); Red Blood Count 4.91 M/mcL (3.82-4.97); Red Cell Distribution Width 13.3 % (11.5-14.5); Segmented Neutrophils % 56.9 %
[2017-08-11 05:39] LABS: BUN/Creatinine Ratio 25 (6-26); Blood Urea Nitrogen 21 mg/dL (7-20); Carbon Dioxide 27 mEq/L (19-29); Chloride 101 mEq/L (98-109); Glucose 101 mg/dL (70-99); Osmolality,Calculated 291 (280-300); Potassium 3.6 mEq/L (3.5-4.5); Sodium 139 mEq/L (136-145); eGFR For African Americans > 60 (> 60); eGFR For Non-African Americans > 60 (> 60)
[2017-08-11 06:02] LABS: Prothrombin Time 13.6 Seconds (9.4-12.1)
[2017-08-11 06:03] LABS: INR 1.3
[2017-08-11] MEDS: Doxycycline 100 MG CAPSULE PO SCH (06:07)
--- NOTE | 2017-08-11 08:19 | Internal Med Progress Note ---
<Cr García - Last Filed: 08/11/17 10:36> Date of Encounter: 08/11/17 Time of Encounter: 08:09 - Assessment and plan (1) Atrial fibrillation with RVR Status: Acute Assessment and plan: Cardiology is following, appreciate input Currently on sotalol 40 mg, Toprol, Cardizem PO (hasn't received IV cardizem in several days) DCCV yesterday was unsuccessful HR is currently controlled K+ WNL Anticoagulation held for thoracentesis Restarted 08/10, continue bridge with Lovenox until INR is therapeutic, 1.3 today (2) Pleural effusion Status: Acute Assessment and plan: CT chest with bilateral pleural effusion, right greater than left. Likely a result of tachycardia. She is day 4 status post thoracentesis. About 450 mL of fluid said to have been removed. She is clinically improved. Interventional radiology input appreciated. (3) Acute bronchitis Status: Acute Assessment and plan: Improved. O2 sat 95% on room air Continue supplemental oxygen PRN. Doxycycline stopped Qualifiers: Bronchitis organism: unspecified organism Qualified Code(s): J20.9 - Acute bronchitis, unspecified (4) Hx of breast cancer Status: Chronic Assessment and plan: Follow-up with oncology as outpatient. (5) HTN (hypertension) Status: Chronic Assessment and plan: Controlled, continue current meds Qualifiers: Hypertension type: essential hypertension Qualified Code(s): I10 - Essential (primary) hypertension (6) CKD (chronic kidney disease), stage III Status: Chronic Assessment and plan: Serum creatinine noted to be stable, at baseline. Continue to monitor - Subjective Interval history: 82-year-old female presented with acute bronchitis and A. fib with RVR. Contributory medical history: A. fib since 2014. CT angiogram chest no evidence of PE, moderate right and small left effusions and atelectasis versus pneumonia versus edema, bronchial wall thickening Patient seen and examined at bedside this morning. Breathing improved, denies chest pain. Patient says when she ambulates her HR goes up into 140s - Constitutional Vitals: Temp Pulse Resp BP Pulse Ox 98.0 F 101 16 108/69 95 08/11/17 07:14 08/11/17 07:14 08/11/17 07:14 08/11/17 07:14 08/11/17 07:14 General appearance: Present: A&O X 3, pleasant, no acute distress, obese, answers questions appropriately - Respiratory Respiratory exam: Present: CTAB. Absent: accessory muscle use, rales, rhonchi, wheezes - Cardiovascular Cardiovascular exam: Present: irregular rhythm, +S1, +S2, tachycardia (heart rate 104). Absent: diastolic murmur, gallop, rubs, systolic murmur - GI/Abdominal GI/Abdominal exam: Present: normal bowel sounds, soft, no peritoneal signs. Absent: distended, tenderness - Extremities Exam Extremities exam: Present: warm. Absent: pedal edema - Neurological Exam Neurological exam: Present: alert, oriented X3, no focal deficits Internal Medicine: Result - Labs CBC & Chem 7: 08/11/17 04:44 08/11/17 04:44 Labs: Short CBC 08/11/17 Range/Units 04:44 WBC 7.5 (4.3-11.1) K/mcL Hgb 14.5 D (11.5-15.4) g/dL Hct 43.6 (35.3-44.9) % Plt Count 200 (140-400) K/mcL Neutrophils # 4.3 (1.6-8.9) K/mcL BMP 08/11/17 04:44 Sodium 139 Potassium 3.6 Chloride 101 Carbon Dioxide 27 BUN 21 H Creatinine 0.84 Glucose 101 H Calcium 9.0 - ABG Interpretation ABG results: PT/INR, D-dimer PT 13.6 Seconds (9.4-12.1) H 08/11/17 04:44 Consult Discharge Plan - Plan Instructions: Atrial Flutter (DC), Atrial Fibrillation (DC) Additional Instructions: Transfer to [facility] Referrals: Elizabeth Goldman MD [Primary Care Provider] - 08/12/17 1:45 pm (web request sent on 08/05/17) <Bradley Benitez - Last Filed: 08/13/17 17:55> Date of Encounter: 08/11/17 - Constitutional Vitals: Temp Pulse Resp BP Pulse Ox 97.7 F 90 16 108/69 94 08/11/17 16:15 08/11/17 16:15 08/11/17 16:15 08/11/17 16:15 08/11/17 16:15 Internal Medicine: Result - Labs CBC & Chem 7: 08/11/17 04:44 08/11/17 04:44 - ABG Interpretation ABG results: PT/INR, D-dimer PT 13.6 Seconds (9.4-12.1) H 08/11/17 04:44 - Attending Attestation I conducted a face to face diagnostic evaluation of this patient and my medical decision-making was reviewed with the Resident Physician, Dr Cr García. I agree with the documented findings, disposition and treatment plan as described except to the extent set forth below: Patient is examined at bedside. She is in no Distress. Heart is irregularly irregular and tachycardic. Lungs are clear. Patient wishes to be transferred to [facility] for a second opinion by cardiology. Please see discharge summary for the same date of service.
--- NOTE | 2017-08-11 08:43 | Electrophysiology ProgressNote ---
Date of Encounter: 08/11/17 Time of Encounter: 08:40 Assessment and Plan (1) Atrial fibrillation with RVR Current Visit: Yes Status: Acute Per cardiology: Know paroxysmal atrial fibrillation. On admission a.fib RVR in setting of CHF and pneumonia. TTE with LVEF 50-55%, no segmental wall motion abnormalities noted. TSH, K, and Mg within normal limits. Currently on sotalol 40mg Q12 hours , BB, and CCB. Status post WILMAR/attempted cardioversion with 3 shocks, unfortunately remains A. fib intermittently RVR. We discussed potentially increasing sotalol vs. discontinuing and resuming amiodarone (had been on in the past) vs. potentially rate control strategy. Patient and family requesting transfer to [facility] for further recommendations and second opinion. Discussed with Dr. Arvind Arevalo, Dr. Brown, and Dr. Vo. Primary service aware, will s/o, f /u scheduled (desires to follow-up as planned). On coumadin for anticoagulation, INR supratherapuetic on arrival-- received vitamin K for thoracentesis. Follows with anticoagulation clinic. INR today 1.3. On Coumadin and Lovenox now. (2) CHF (congestive heart failure) Current Visit: Yes Status: Acute Per cardiology: BNP on admission 577. Chest CT with moderate right pleural effusion and small left pleural effusion. S/p thoracentesis. Baseline weight 88kg. On lasix. Stable. Qualifiers: Congestive heart failure type: diastolic Congestive heart failure chronicity: acute Qualified Code(s): I50.31 - Acute diastolic (congestive) heart failure (3) CKD (chronic kidney disease), stage III Current Visit: Yes Status: Chronic Per Cardiology: CKD 3a, stable. On lasix. Discussion w patient/family: The assessment and plan as outlined above was discussed with the patient and/or family members who expressed understanding and agreement. All questions were answered. Thank you for involving us in the care of your patient. Please call with any questions. Subjective Principal diagnosis: CHF, a.fib Interval history: Patient denies CP. Reports SOB overall improved. Reports rapid HR with minimal activity. Objective Vital Signs, Last 4 Hours Temp Pulse Resp BP Pulse Ox 08/11/17 07:14 98.0 F 101 16 108/69 95 General: Conversant, No Apparent Distress HEENT: Atraumatic, Normocephaly, Mucus Membranes Moist Cardiac: Other (irregular irregular) Lungs: Normal Breath Sounds, No Wheeze, Rales, Rhonchi Neuro: Alert and responsive, No focal deficits noted Abdomen: Soft, Non-Tender Skin: No rashes noted on visualized skin Musculoskeletal: No Chest Wall Tenderness Extremities: No Edema, Normal Pulses Results 08/11/17 04:44 08/11/17 04:44 Lab Results Laboratory Tests 08/11/17 04:44 INR 1.3 Active Medications Acetaminophen (Tylenol) 650 mg PO Q6HR PRN PRN Reason: Mild Pain (1-3) Stop: 02/03/18 20:28 Albuterol Sulfate (Proventil Neb) 2.5 mg IH Q2H PRN; Protocol PRN Reason: Shortness Of Breath/Wheezing Stop: 02/04/18 11:51 Aspirin (Aspirin Ec) 81 mg PO DAILY KEYANA Stop: 02/04/18 09:01 Last Admin: 08/10/17 11:20 Dose: 81 mg Diltiazem HCl (Cardizem) 60 mg PO QID KEYANA Stop: 02/08/18 09:46 Last Admin: 08/10/17 21:42 Dose: 60 mg Docusate Sodium (Colace) 100 mg PO BID KEYANA PRN Reason: Protocol Stop: 02/05/18 09:01 Last Admin: 08/10/17 21:42 Dose: Not Given Enoxaparin Sodium (Lovenox) 90 mg 1 mg/kg (90 mg) SQ Q12H KEYANA PRN Reason: Protocol Stop: 02/09/18 10:01 Last Admin: 08/10/17 21:44 Dose: Not Given Furosemide (Lasix) 20 mg PO BIDDIURETIC KEYANA Stop: 02/05/18 08:46 Last Admin: 08/10/17 17:54 Dose: 20 mg Diltiazem HCl 100 mg/ Dextrose 50 mls @ 2.5 mls/hr IVC .Q20H KEYANA; 5 MG/HR PRN Reason: Protocol Stop: 02/07/18 14:16 Last Admin: 08/11/17 04:22 Dose: Not Given Ipratropium [place]gett (Atrovent Neb) 0.5 mg IH [id number] KEYANA Stop: 02/04/18 16:01 Last Admin: 08/11/17 04:05 Dose: Not Given Levalbuterol HCl (Xopenex) 0.63 mg IH [id number] [facility] Stop: 02/04/18 16:01 Last Admin: 08/11/17 04:05 Dose: Not Given Melatonin (Melatonin) 6 mg PO HS PRN PRN Reason: Insomnia Stop: 02/05/18 17:40 Last Admin: 08/06/17 21:25 Dose: 6 mg Metoprolol Succinate (Toprol Xl) 25 mg PO DAILY [facility] Stop: 02/04/18 09:01 Last Admin: 08/10/17 11:19 Dose: 25 mg Metoprolol Tartrate (Lopressor) 5 mg IVP Q6HR PRN PRN Reason: HR>110 Stop: 02/04/18 09:43 Last Admin: 08/08/17 10:47 Dose: 5 mg Montelukast Sodium (Singulair) 10 mg PO DAILY [facility] Stop: 02/04/18 09:01 Last Admin: 08/10/17 11:19 Dose: 10 mg Naloxone HCl (Narcan) 0.4 mg IVP Q2MIN PRN PRN Reason: Opioid Reversal Stop: 02/03/18 20:28 Sotalol HCl (Betapace) 40 mg PO Q12H [facility] Stop: 02/05/18 21:01 Last Admin: 08/10/17 22:30 Dose: 40 mg Warfarin Sodium (Coumadin Perpt) 1 each PO DAILY@1800 PRN PRN Reason: SEE COMMENTS Stop: 02/04/18 18:01 - EKG Interpretation EKG results cardiology: other (A. fib the 90s to 110s) Consult Discharge Plan - Plan Referrals: Elizabeth Goldman MD [Primary Care Provider] - 08/12/17 1:45 pm (web request sent on 08/05/17)
[2017-08-11] MEDS: *HR* Enoxaparin 100 MG/ML SYRINGE SQ SCH (10:00)
[2017-08-11] MEDS: dilTIAZem HCl 60 MG TABLET PO SCH ×3 (10:01→16:27)
[2017-08-11] MEDS: Furosemide 20 MG TABLET PO SCH ×2 (10:01→16:27)
[2017-08-11] MEDS: Aspirin Enteric Coated 81 MG Tablet PO SCH (10:01)
[2017-08-11] MEDS: Metoprolol XL (24 HR) Succ 50 MG TAB.ER.24H PO SCH (10:01)
--- NOTE | 2017-08-11 15:37 | Discharge Summary ---
<RaquelCr Eliazar - Last Filed: 08/11/17 15:26> Date of Encounter: 08/11/17 Time of Encounter: 15:27 - Discharge Diagnosis (1) Atrial fibrillation with RVR Priority: Primary Status: Acute (2) Pleural effusion Priority: Primary Status: Acute (3) Acute bronchitis Priority: Primary Status: Acute Qualifiers: Bronchitis organism: unspecified organism Qualified Code(s): J20.9 - Acute bronchitis, unspecified (4) Hx of breast cancer Priority: Secondary Status: Chronic (5) HTN (hypertension) Priority: Secondary Status: Chronic Qualifiers: Hypertension type: essential hypertension Qualified Code(s): I10 - Essential (primary) hypertension (6) CKD (chronic kidney disease), stage III Priority: Secondary Status: Chronic - Discharge Medications Home Medications: Aspirin Enteric Coated [Aspirin EC] 81 mg PO DAILY 06/08/15 [History] Warfarin [Coumadin] 5 mg PO SUTUWETHSA 06/08/15 [History] amLODIPine [Norvasc] 5 mg PO DAILY 02/19/17 [History] Metoprolol Succinate 25 mg PO DAILY 08/04/17 [History] Montelukast [Singulair] 10 mg PO DAILY 08/04/17 [History] Warfarin [Coumadin] 7.5 mg PO MOFR 08/04/17 [History] Docusate [Colace] 100 mg PO BID capsule 08/11/17 [Rx] Furosemide [Lasix] 20 mg PO BIDDIURETIC tablet 08/11/17 [Rx] Melatonin 6 mg PO HS PRN tablet 08/11/17 [Rx] Sotalol [Betapace] 40 mg PO Q12H tablet 08/11/17 [Rx] dilTIAZem HCl [Cardizem] 60 mg PO QID tablet 08/11/17 [Rx] Allergies/Adverse Reactions: 3 Allergy/AdvReac Type Severity Reaction Status Date / Time azithromycin Allergy Hives Verified 07/31/16 17:30 [From Zithromax Z-Galdino] lisinopril Allergy Cough Verified 08/04/17 13:23 mannitol [From Zometa] Allergy Anaphylaxis Verified 07/31/16 17:30 zoledronic acid [From Zometa] Allergy Anaphylaxis Verified 07/31/16 17:30 Procedures/tests Complete & Pending: Procedures Performed prior 72 hours Category Date Time Status ECG 12 lead ECG [ECG] AM 0600 Y 08/09/17 06:00 Completed ECG 12 lead ECG [ECG] Routine Y 08/09/17 23:03 Completed ECG 12 lead ECG [ECG] Routine Y 08/10/17 15:27 Completed ECG 12 lead ECG [ECG] Stat Y 08/10/17 13:32 Completed EV christopher guided cardioversion Routine Y 08/10/17 09:53 Completed Date of admission: 08/04/17 20:27 Primary care physician: Elizabeth Goldman Consults: 08/06/17 08:40 Consult to Cardiology [CONS] Routine Comment: Consulting Provider: [facility] Reason for Consult: A.fib with RVR, possible acute CHF with right pleural effusion, hypoxia Call Completed: Yes Discharging clinician: Bradley Benitez Anticipated date of discharge: 08/11/17 - Patient Status Disposition: Transfer Other Condition: Fair Functional capacity at discharge: independent ambulation Overall status at discharge: patient is progressing back to baseline - Discharge Instructions Instructions: Atrial Flutter (DC), Atrial Fibrillation (DC) Follow Up With: Elizabeth Goldman MD [Primary Care Provider] - 08/12/17 1:45 pm (web request sent on 08/05/17) Additional Instructions: Transfer to [facility] - Diet and Activity Activity: as per the cardiac rehab Hospital course: Ms. Costa is an 82 year old female who presented to [facility] 08/04/17. Earlier that day, she was in the pulmonology outpatient clinic getting a workup for shortness of breath when she was found to be in A. fib with RVR. Contributory medical history: paroxysmal A. fib since 2014, hypertension, CAD stage III, CHF, breast cancer. During initial workup in the ED CT angiogram showed no evidence of PE but she was found to have a right- sided pleural effusion. Her home dose of Coumadin is 7.5mg Mo/Fr and 5mg // // and her INR has been therapeutic for the month preceding her hospitalization. Coumadin was held so thoracentesis could be performed on which successfully resolved the effusion. Coumadin was resumed 08/10/17. At home patient takes Norvasc 5 mg daily, Toprol-XL 25 mg daily, Cardizem 60 mg 4 times a day, sotalol 40 mg twice a day, Lasix 20 mg twice a day, and aspirin 81 mg daily. She was evaluated by cardiology who continued Cardizem drip and sotalol 40 mg every 12 hours. TTE showed LVEF 50-55% and no segmental wall abnormalities. TSH, K+, Mg all WNL. Following several days of medical management, she remained in RVR and CHRISTOPHER cardioversion was attempted 08/10/17 unsuccessfully. [facility] cardiology team discussed possibility of repeat cardioversion and patient requested transfer to [facility] - Time Spent with Patient Total time spent providing and/or coordinating discharge services: Greater than 30 minutes - Constitutional Vitals: Temp Pulse Resp BP Pulse Ox 97.9 F 71 16 91/72 91 08/11/17 11:04 08/11/17 12:50 08/11/17 11:04 08/11/17 12:50 08/11/17 11:04 General appearance: Present: A&O X 3, pleasant, no acute distress, answers questions appropriately - Respiratory Respiratory exam: Present: CTAB. Absent: accessory muscle use, rales, rhonchi, wheezes - Cardiovascular Cardiovascular exam: Present: irregular rhythm, +S1, +S2. Absent: diastolic murmur, gallop, rubs, systolic murmur - GI/Abdominal GI/Abdominal exam: Present: normal bowel sounds, soft, no peritoneal signs. Absent: distended, tenderness - Extremities Exam Extremities exam: Present: warm, radial pulses palpable and symmetrical. Absent : calf tenderness, cyanotic, pedal edema - Neurological Exam Neurological exam: Present: alert, oriented X3, no focal deficits. Absent: pronater drift, facial droop, speech deficit <Bradley Benitez - Last Filed: 08/11/17 19:42> Date of Encounter: 08/11/17 Procedures/tests Complete & Pending: Procedures Performed prior 72 hours Category Date Time Status ECG 12 lead ECG [ECG] AM 0600 Y 08/09/17 06:00 Completed ECG 12 lead ECG [ECG] Routine Y 08/09/17 23:03 Completed ECG 12 lead ECG [ECG] Routine Y 08/10/17 15:27 Completed ECG 12 lead ECG [ECG] Stat Y 08/10/17 13:32 Completed EV christopher guided cardioversion Routine Y 08/10/17 09:53 Completed Date of admission: 08/04/17 20:27 Primary care physician: Elizabeth Goldman Consults: 08/06/17 08:40 Consult to Cardiology [CONS] Routine Comment: Consulting Provider: Cardiology [facility] Reason for Consult: A.fib with RVR, possible acute CHF with right pleural effusion, hypoxia Call Completed: Yes Hospital course: Ms. Costa is a 82 year old female - Time Spent with Patient Total time spent providing and/or coordinating discharge services: - Constitutional Vitals: Temp Pulse Resp BP Pulse Ox 97.7 F 90 16 108/69 94 08/11/17 16:15 08/11/17 16:15 08/11/17 16:15 08/11/17 16:15 08/11/17 16:15 - Attending Attestation I conducted a face to face diagnostic evaluation of this patient and my medical decision-making was reviewed with the Resident Physician, Dr Cr García. I agree with the documented findings, disposition and treatment plan as described except to the extent set forth below: Patient requested to be transferred to [facility] for second opinion. She underwent unsuccessful attempt at cardioversion yesterday. On exam she is distress. Heart is irregularly irregular, normal rate. Plan: We will transfer to [facility] per patient request. I explained that they may not have anything else to offer and the patient expressed understanding and agreement with the plan.
[2017-08-11 16:16] VITALS: BP 108/69
[2017-08-11] MEDS ORDERED: *HR* Warfarin 5 MG TABLET PO ONE (18:00)
--- NOTE | 2017-08-11 22:42 | Electrocardiograph Report ---
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
--- NOTE | 2017-08-12 12:38 | Electrocardiograph Report ---
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
--- NOTE | 2017-08-12 18:14 | Electrocardiograph Report ---
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
--- NOTE | 2017-08-12 18:27 | Electrocardiograph Report ---
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
--- NOTE | 2017-08-12 18:34 | Electrocardiograph Report ---
[place] [id number] Test Date: 2017-08-10 Pat Name: Judie Costa Department: 101 Room: 2A26 Gender: F [employer] Hand: : 1935 Requested By: Bradley Benitez Order Number: [id number] Reading MD: Serge Brown DO Measurements Intervals [place] Rate: 123 P: NM: 0 QRS: 72 QRSD: 104 T: -8 QT: 332 QTc: 405 Interpretive Statements ATRIAL FIBRILLATION WITH RAPID VENTRICULAR RESPONSE NONSPECIFIC ST & T-WAVE ABNORMALITY Electronically Signed On 08-12-2017 18:33:21 EST by Serge Brown DO
== END 2017-08-11 17:20 | disposition other institution (70) | DRG 308 ==
LOC: EMEROO 12:26 → 2ANU 12:26 → 2NENU 18:53 → 2ANU 19:17 → SUATTDRO 20:27
PROVIDERS: ADMIT Internal Medicine; ATTEND Internal Medicine

== ENCOUNTER 2018-10-26 17:28 | Inpatient (IN) ==
[2018-10-26] MEDS ORDERED: Naloxone 0.4 MG/ML INJ IVP PRN (21:12)
[2018-10-26] MEDS ORDERED: Ringers Solution, Lactated 1,000 ML IVC SCH (21:15)
[2018-10-26] MEDS ORDERED: Acetaminophen 325 MG TABLET PO PRN (21:20)
--- NOTE | 2018-10-26 21:35 | Internal Med History&Physical ---
<JadeataGenoveva N - Last Filed: 10/27/18 00:17> Date of Encounter: 10/27/18 Time of Encounter: 21:25 Internal Medicine - H&P: HPI Chief complaint: Fall, Right shoulder pain History of present illness: Ms. Costa is a 83 year old female with a history of A. fib on Coumadin, prior TIA, COPD with an FEV1 68% in 2017, and CHF who presented to [place] emergency department with a chief complaint of right shoulder pain. This began after patient suffered a mechanical fall. She states that she was at her son's house and tripped over a rug and landed on her right side with her arm outstretched. She struck her hand and right hip and had significant pain after the event. She denies laying on the ground for a long period of time as family members were present nearby who came to her assistance. In the [facility] ED, an x-ray of the shoulder revealed an acute fracture of the right humeral neck. She was also found to be in A. fib with RVR with a heart rate in the 160s. Patient states that she is always in A. fib and that it has been difficult to rate control in the past, she has failed prior Cardizem drips and failed WILMAR cardioversion in 2017. Patient was given pain control with Dilaudid in the ED, she received boluses of Cardizem and was started on a Cardizem drip as well. Patient was transferred to [facility] for further care and orthopedic consultation. Patient arrived to the hospital in no distress, family members are present at bedside. Patient denies any loss of consciousness or dizziness or palpitations prior to her fall. She complains of pain in the right shoulder at a 7/10 intensity. She is tachycardic with a heart rate in the 140s. Cardizem drip at 20 mg was continued, patient's blood pressure was stable at 106/74. Past Med Surg Social Fam HX - Past Medical History Medical history: asthma, atrial fibrillation (On Coumadin), cancer, CVA, hypertension, malignancy Additional medical history: breast cancer Psychiatric history: no psych history - Past Surgical History Surgical History: breast surgery, knee replacement Additional surgical history: left sided lumpectomy. cardiac ablasion - Social History Smoking Status: Never smoker Smokeless Tobacco Status: No Alcohol use: none Drug use: none - Family History Mother Living Status: Hx Family Cancer: Yes Father Living Status: Age at : 55 Cause of : s/p fall Internal Medicine - H&P: Meds Aspirin Enteric Coated [Aspirin EC] 81 mg PO DAILY 06/08/15 [History] Warfarin [Coumadin] 5 mg PO SUTUWETHSA 06/08/15 [History] Warfarin [Coumadin] 7.5 mg PO MOFR 08/04/17 [History] Diltiazem CD (24hr) [Cardizem CD] 240 mg PO BID 10/30/17 [History] Palbociclib [Ibrance] 100 mg PO DAILY #21 capsule 03/19/18 [Rx] Furosemide [Lasix] 20 mg PO PRN 04/14/18 [History] Albuterol Sulfate [Proair Hfa] 1 puff IH Q6H PRN #1 inh 05/19/18 [Rx] Letrozole [Femara] 2.5 mg PO DAILY #90 tablet 05/19/18 [Rx] Potassium Chloride 10 meq PO AD #30 tab.er.prt 05/19/18 [Rx] Magnesium 30 mg PO DAILY 08/11/18 [History] Allergy/AdvReac Type Severity Reaction Status Date / Time azithromycin Allergy Hives Verified 08/11/18 09:54 [From Zithromax Z-Galdino] lisinopril Allergy Cough Verified 08/11/18 09:54 mannitol [From Zometa] Allergy Anaphylaxis Verified 08/11/18 09:54 zoledronic acid [From Zometa] Allergy Anaphylaxis Verified 08/11/18 09:54 All Systems PM: A 10-system review of systems was performed and is negative for pertinent findings except as documented above in the HPI. - Constitutional Constitutional: falls - EENT Eyes: no change in vision Ears: no decreased hearing - Cardiovascular Cardiovascular ROS IM: no chest pain, no palpitations - Respiratory Respiratory: dyspnea - Gastrointestinal Gastrointestinal: no abdominal pain, no diarrhea, no hematochezia - Genitourinary Genitourinary: no hematuria - Musculoskeletal Musculoskeletal ROS IM: other (Right shoulder pain), no back pain - Neurological Neurological ROS: no abnormal gait, no dizziness, no lack of coordination - Constitutional Vitals: Temp Pulse Resp BP Pulse Ox 98.2 F 99 18 106/74 89 10/26/18 21:07 02/19/19 21:07 10/26/18 21:07 10/26/18 21:07 10/26/18 21:07 Exam: Constitutional: Resting comfortably in bed, no acute distress, sling in place on right upper extremity HEENT: Head is atraumatic normocephalic, pupils are small but react to light bilaterally, Extraocularmuscles intact, no intraoral lesions or tongue lacerations noted. External ears and nares are patent. Neck: No JVD, trachea midline Chest: Symmetrical chest wall rise, no tenderness to palpation Cardiovascular: Tachycardic, irregular rhythm, no murmurs auscultated Respiratory: Clear to auscultation bilaterally in all lung oliver. No rales rhonchi or wheezing. Abdomen: Soft, nontender, no guarding or rigidity. Extremities: Sling in place in right upper extremity. Patient has pain on palpation of the right shoulder. She states it is painful to move the right upper extremity. Normal left upper 70. Mild edema of the bilateral lower extremity's. Neurological: Alert and oriented 3, no obvious focal neurological deficits identified. Skin: No ecchymosis, lacerations, or signs of injury noted on exposed skin surfaces Psych: Pleasant, cooperative, normal mood and affect - Assessment and plan (1) Right humeral fracture Current Visit: Yes Status: Inactive Assessment and plan: Suffered after mechanical fall at home. [facility] ED right shoulder x-ray reveals acute fracture of the humeral neck. Head CT negative for bleed or fracture, hip x-ray negative for fracture Orthopedic surgery consultation Pain control with analgesics Nothing by mouth after midnight except medications Per nursing, family decided if patient is recommended to undergo surgery that she be transferred to [facility]. Will speak with family and discuss further. Patient was asked regarding her wishes for code status, patient states that she is unsure at this time and will inform the medical team when she has made a decision. Will make patient full code status at this time until further decision is made. Qualifiers: Encounter type: initial encounter Humerus Location: proximal Fracture type: closed Fracture morphology: unspecified fracture morphology Qualified Code(s): S42.201A - Unspecified fracture of upper end of right humerus, initial encounter for closed fracture (2) Atrial fibrillation with RVR Current Visit: Yes Status: Chronic Assessment and plan: History of A. fib diagnosed in 2014, on coumadin, metoprolol, and cardizem at home Patient states that she is always in A. fib, but is asymptomatic, no palpitations or chest pain, baseline shortness of breath Received boluses of Cardizem in the emergency department and was started on a Cardizem drip Cardizem drip currently at 20 mg Repeat EKG Cardiac monitoring Every 4 hour vital signs INR today was 2.9, currently holding Coumadin due to acute fracture and need for orthopedic surgery consultation (3) JERRELL (acute kidney injury) Current Visit: Yes Status: Acute Assessment and plan: Mild JERRELL with Creatinine of 1.26 today Baseline creatinine around 1.1 Patient nothing by mouth after midnight, will give maintenance fluids with LR at 100 mL an hour (4) COPD (chronic obstructive pulmonary disease) Current Visit: No Status: Chronic Assessment and plan: Not in exacerbation Pulmonary function testing from 02/2017 reveals a reduced FEV1/FVC with an FEV1 at 68%. Flow volume loop revealed an obstructive pattern. Patient is reportedly on pro-air at home as needed Will start as needed DuoNeb every 4 hours Qualifiers: Qualified Code(s): J44.9 - Chronic obstructive pulmonary disease, unspecified (5) Osteopenia Current Visit: Yes Status: Chronic Assessment and plan: Per chart review patient had a DEXA scan 05/28/2010 which confirmed osteopenia with a left femoral neck T score of -1.7. Also has vitamin D deficiency with a level of 26 and 02/17/2017 Patient was on zoledronic acid previously, but this was stopped due to adverse reaction Qualifiers: Osteopenia location: femoral neck Laterality: left Qualified Code(s): M85.852 - Other specified disorders of bone density and structure, left thigh (6) HTN (hypertension) Current Visit: No Status: Chronic Assessment and plan: Currently normotensive with a heart rate of 106/74 Currently on a Cardizem drip We will hold home antihypertensives to avoid hypotension. Qualifiers: Hypertension type: essential hypertension Qualified Code(s): I10 - Essential (primary) hypertension (7) History of TIA (transient ischemic attack) Current Visit: No Status: Resolved Assessment and plan: Patient has a prior history of a TIA, reportedly brain MRI showed some cerebral ischemia in the left periventricular area, insular cortex, and parietal region per oncology note from 02/19/2017 Patient was started on aspirin She denies any syncopal symptoms, dizziness, or any new focal neurological deficits prior to her fall We will hold aspirin at this time pending orthopedic surgery consultation (8) Hx of breast cancer Current Visit: No Status: Resolved Assessment and plan: Mammogram 03/25/2010 showed a 2.5 cm left breast mass Partial mastectomy 04/11/2010 showed 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 She received left breast radiotherapy followed by adjuvant endocrine therapy Records show patient is currently on Palbociclin and Letrozole Continue after pharmacy confirms home medications (9) DVT prophylaxis Current Visit: Yes Status: Acute Assessment and plan: EPCD Patient on coumadin at home, INR 2.9 today Holding coumadin - Time Spent With Patient Total time spent is greater than 50% in coordination of care (as documented) at patient's floor/unit and/or counseling patient: <Olvin Guardado - Last Filed: 10/27/18 01:53> Date of Encounter: 10/27/18 Time of Encounter: 00:35 - Constitutional Constitutional: falls, no chills, no fever(s), no night sweats - EENT Eyes: no blurry vision, no change in vision Ears: no ear pain, no tinnitus Nose, mouth and throat: no nasal congestion, no sinus pressure, no sore throat - Cardiovascular Cardiovascular ROS IM: no chest pain, no dyspnea, no dyspnea on exertion, no lightheadedness, no palpitations, no syncope - Respiratory Respiratory: no cough, no chest congestion, no excessive phlegm production - Gastrointestinal Gastrointestinal: no abdominal pain, no diarrhea, no hematemesis, no hematochezia, no melena, no vomiting - Genitourinary Genitourinary: no dysuria, no flank pain, no hematuria - Musculoskeletal Musculoskeletal ROS IM: arthralgias (right shoulder), no back pain - Integumentary Integumentary IM: no rash, no jaundice - Neurological Neurological ROS: no dizziness, no focal weakness, no frequent falls, no headache(s) - Psychiatric Psychiatric: no anxiety, no depression - Endocrine Endocrine IM: no cold intolerance, no heat intolerance, no polydipsia, no polyphagia, no polyuria - Allergic/Immunologic Allergic/Immunologic: no GI upset with certain foods - Constitutional Vitals: Temp Pulse Resp BP Pulse Ox 98.2 F 119 18 149/60 97 10/26/18 21:07 10/26/18 22:37 10/26/18 21:07 10/27/18 00:34 10/26/18 23:28 General appearance: Present: cooperative, mild distress, A&O X 3, pleasant, answers questions appropriately - Head Head exam: Present: atraumatic, normal inspection - Eye Eye exam: Present: EOMI, PERRL. Absent: scleral icterus - Neck Neck exam general surgery: Present: supple. Absent: tenderness - Respiratory Respiratory exam: Present: CTAB. Absent: rales, rhonchi, wheezes - Cardiovascular Cardiovascular exam: Present: distant heart sounds, irregular rhythm, +S1, +S2. Absent: diastolic murmur, systolic murmur Additional comments: HR currently in the 90's - 110's - GI/Abdominal GI/Abdominal exam: Present: normal bowel sounds, soft. Absent: hepatomegaly, mass, splenomegaly, tenderness - Extremities Exam Extremities exam: Present: normal capillary refill, tenderness (right arm/shoulder), warm, radial pulses palpable and symmetrical. Absent: calf tenderness, pedal edema - Back Exam Back exam: Absent: CVA tenderness (L), CVA tenderness (R) - Neurological Exam Neurological exam: Present: alert, CN II-XII intact, oriented X3, no focal deficits, strengths equal and symetr throughout - Psychiatric Psychiatric exam: Present: normal affect, normal mood - Skin Skin exam: Present: dry, intact, warm Internal Med - H&P Results - EKG Data -: EKG Interpreted by Myself (A fib/RVR) - Impressions ITS Impressions Chest X-Ray 10/26/18 21:22 IMPRESSION: No acute cardiopulmonary abnormality. D/ / Eliazar Cordova MD / Eliazar Cordova MD Interpreting Provider: Eliazar Cordova MD - Time Spent With Patient Total time spent is greater than 50% in coordination of care (as documented) at patient's floor/unit and/or counseling patient: - Attending Attestation I discussed the patient [place], past medical history, review of systems, lab data, imaging findings, and exam findings with Dr. Carrillo. I then saw and examined patient independently as well. Patient is presently rate controlled with heart rate in the 90s to low 100s. Cardizem drip has been weaned down to 15 mg per hour. She denies any chest pain. She does have pain in her shoulder and right arm, which is relatively well-controlled now. She denies any syncope or near syncope symptoms. She describes a mechanical fall after slipping/tripping over a rug and floor mats. I personally called and discussed the case with Dr. Robert and asked him to see her in consultation. I explained this to patient and her son and that she will likely not need surgical intervention. However, I will defer that decision to orthopedic surgery. She and her son both voiced understanding and agreement with the plan. Meanwhile, if we cannot optimally control her heart rate and rhythm, we may need cardiology consultation as well. She is currently anti-coagulated on Coumadin for her atrial fibrillation. Given the remote possibility of surgical intervention, we will hold her Coumadin today and then readdress the Coumadin issue/anti-coagulation issue tomorrow with the day team once further recommendations are given by orthopedic surgery. I will cancel her npo status and order a cardiac diet for now. Other than my comments above and noted exam findings, I agree with Dr. Carrillo's assessment and plan.
[2018-10-26] MEDS ORDERED: Ipratropium/Albuterol Neb 3 ML IH PRN (22:00)
[2018-10-26] MEDS ORDERED: Sennosides 8.6 MG TABLET PO PRN (22:01)
[2018-10-26] MEDS: Ondansetron ODT 4 MG TAB.RAPDIS SL PRN (22:29)
[2018-10-26] MEDS: *HR* OxyCODONE Immed Rel 5 MG TABLET PO PRN (22:32)
[2018-10-27] MEDS: *HR* OxyCODONE Immed Rel 5 MG TABLET PO PRN ×4 (03:58→20:44)
[2018-10-27 06:42] LABS: Basophils % 0.3 %; Eosinophils % 0.1 %; Hematocrit 37.4 % (35.3-44.9); Hemoglobin 12.4 g/dL (11.5-15.4); Immature Granulocytes % 0.3 % (0-4); Lymphocytes # 1.1 K/mcL (0.6-4.6); Lymphocytes % 14.5 %; Mean Corpuscular HGB Conc 33.2 g/dL (31.6-35.5); Mean Corpuscular Hemoglobin 30.8 pg (28.0-33.3); Mean Corpuscular Volume 92.8 fL (83.0-100.0); Mean Platelet Volume 9.7 fL (9.4-12.4); Monocytes # 0.8 K/mcL (0.0-1.3); Monocytes % 9.6 %; Neutrophils # 5.9 K/mcL (1.6-8.9); Platelet Count 157 K/mcL (140-400); Red Blood Count 4.03 M/mcL (3.82-4.97); Red Cell Distribution Width 13.2 % (11.5-14.5); Segmented Neutrophils % 75.2 %
[2018-10-27 06:56] LABS: Prothrombin Time 34.3 Seconds (9.4-12.1)
[2018-10-27 07:03] LABS: BUN/Creatinine Ratio 14 (6-26); Blood Urea Nitrogen 14 mg/dL (8-23); Calcium 9.2 mg/dL (8.6-10.3); Carbon Dioxide 29 mEq/L (23-29); Chloride 103 mEq/L (98-107); Glucose 122 mg/dL (70-105); Osmolality,Calculated 288 (280-300); Potassium 4.2 mEq/L (3.5-5.1); Sodium 138 mEq/L (136-145); eGFR For Non-African Americans 53 (> 60)
--- NOTE | 2018-10-27 07:16 | Orthopedic Consult Note ---
Date of Encounter: 10/27/18 Time of Encounter: 07:14 Assessment and Plan (1) Proximal humerus fracture Current Visit: Yes Status: Acute I did have a long discussion with the patient regarding the diagnosis. She has a nondisplaced and impacted right proximal humerus fracture. My recommendation is nonoperative management in the form of sling immobilization for 3 weeks followed by gentle motion exercises and pendulum swings progressing into active and passive range of motion exercises by week 6. No pushing, pulling, lifting with the right upper extremity. Sling for comfort. Consultation to occupational therapy and physical therapy while in house. She will require an x-ray in 1 week to evaluate for displacement. Follow-up in one week for that repeat x-ray or sooner if needed. I will be available at any time for reevaluation for any changes in her condition. I have reviewed each of the pertinent components of this chart and any other pe rtinent medical component(s) including but not limited to pertinent application of the chief complaint, history of present illness, current medication, medical history, allergies, family history, medical history, surgical history, social history, review of systems, vital signs, and any other portion of the pertinent patient medical record directly or indirectly involved with this patient care that is pertinent based on my medical decision process. YEMI Doss Qualifiers: Qualified Code(s): S42.201A - Unspecified fracture of upper end of right humerus, initial encounter for closed fracture History of Present Illness HPI: Ms. Costa is a 83 year old female with atrial fibrillation with RVR. She was helping a friend yesterday when she sustained a fall causing a right impacted proximal humerus fracture. She was seen in the [facility] emergency department where she was placed in a sling and transferred to [facility] due to her cardiac status. She is currently on a Cardizem drip for a control and is currently on Coumadin. She complains of isolated pain to the right shoulder which is sharp and achy in nature and worse with use and movement of the right shoulder and better with rest. She denies headaches, neck pain, chest pain, abdominal pain, left upper extremity pain, right upper extremity pain below the shoulder, and bilateral lower extremity pain. She has been able to ambulate without issue. She denies numbness, tingling, or any other associated signs or symptoms or modifying factors. Past Med Surg Social Fam HX - Past Medical History Medical history: asthma, atrial fibrillation (On Coumadin), cancer, CVA, hypertension, malignancy Additional medical history: breast cancer Psychiatric history: no psych history - Past Surgical History Surgical History: breast surgery, knee replacement Additional surgical history: left sided lumpectomy. cardiac ablasion - Social History Smoking Status: Never smoker Smokeless Tobacco Status: No Alcohol use: none Drug use: none - Family History Father Living Status: Age at : 55 Cause of : s/p fall Mother Living Status: Age at : 63 Cause of : Stomach ca w/ brain mets Hx Family Cancer: Yes Medications and Allergies Aspirin Enteric Coated [Aspirin EC] 81 mg PO DAILY 06/08/15 [History] Warfarin [Coumadin] 5 mg PO SUTUWETHSA 06/08/15 [History] Warfarin [Coumadin] 7.5 mg PO MOFR 08/04/17 [History] Diltiazem CD (24hr) [Cardizem CD] 240 mg PO BID 10/30/17 [History] Palbociclib [Ibrance] 100 mg PO DAILY #21 capsule 03/19/18 [Rx] Furosemide [Lasix] 20 mg PO PRN 04/14/18 [History] Albuterol Sulfate [Proair Hfa] 1 puff IH Q6H PRN #1 inh 05/19/18 [Rx] Letrozole [Femara] 2.5 mg PO DAILY #90 tablet 05/19/18 [Rx] Potassium Chloride 10 meq PO AD #30 tab.er.prt 05/19/18 [Rx] Magnesium 30 mg PO DAILY 08/11/18 [History] Allergy/AdvReac Type Severity Reaction Status Date / Time azithromycin Allergy Hives Verified 08/11/18 09:54 [From Zithromax Z-Galdino] lisinopril Allergy Cough Verified 08/11/18 09:54 mannitol [From Zometa] Allergy Anaphylaxis Verified 08/11/18 09:54 zoledronic acid [From Zometa] Allergy Anaphylaxis Verified 08/11/18 09:54 All Systems Reviewed: Constitutional -The patient denies any fevers, chills, or feelings of illness Neurologic -The patient denies any numbness, tingling, or burning pains Physical Exam - Constitutional Vitals: Temp Pulse Resp BP Pulse Ox 98.7 F 84 18 162/72 94 10/27/18 04:23 10/27/18 04:23 10/27/18 04:23 10/27/18 04:23 10/27/18 04:23 Constitutional -Vitals reviewed -The patient is well developed and well nourished. -Mood is pleasant. -The patient is well groomed. Psychiatric -The patient is fully alert and oriented x 3. Respiratory: -Respiratory effort normal Abdomen: -Soft abdomen -Non tender -Non distended: Left upper extremity: -No deformities. The overlying skin is intact. No obvious signs of acute trauma. -No tenderness to palpation throughout. -No significant pain with passive motion of the shoulder, elbow, wrist, and fingers within the limits of the bed. -Able to make an "OK" sign, cross the index and long fingers, and extend the thumb. -Sensation grossly intact to light touch throughout the median, radial, and ulnar distributions. -Radial pulse is present; Fingers have good capillary refill. Right upper extremity: -No deformities. The overlying skin is intact. No obvious signs of acute trauma. -Tenderness to palpation over the glenohumeral and proximal humeral region. Any movement of the shoulder causes significant pain. -No significant pain with passive motion elbow, wrist, and fingers within the limits of the bed. -Able to make an "OK" sign, cross the index and long fingers, and extend the conor mb. -Sensation grossly intact to light touch throughout the median, radial, and ulnar distributions. -Radial pulse is present; Fingers have good capillary refill. Left lower extremity: -No deformities. The overlying skin is intact. No obvious signs of acute trauma. -No tenderness to palpation throughout. -No pain with passive motion of the hip, knee, ankle, and toes within the limits of the bed. -No pain with axial loading of the thigh. -Able to dorsiflex and plantarflex the ankle and toes. -Sensation is grossly intact to light touch throughout the sural, saphenous, superficial peroneal, and deep peroneal distributions. -Toes have good capillary refill. Right lower extremity: -No deformities. The overlying skin is intact. No obvious signs of acute trauma. -No tenderness to palpation throughout. -No pain with passive motion of the hip, knee, ankle, and toes within the limits of the bed. -No pain with axial loading of the thigh. -Able to dorsiflex and plantarflex the ankle and toes. -Sensation is grossly intact to light touch throughout the sural, saphenous, superficial peroneal, and deep peroneal distributions. -Toes have good capillary refill. Diagnostic Imaging: I did personally review and interpret x-rays of the right shoulder which show any acute impacted proximal humerus fracture at the surgical neck. Pelvis x-ray shows no fractures. Results - Labs Result Diagrams: 10/27/18 06:19 10/27/18 06:19 Labs: Abnormal lab results PT 34.3 Seconds (9.4-12.1) H 10/27/18 06:19 Est GFR (Non-Af Amer) 53 (> 60) L 10/27/18 06:19 Glucose 122 mg/dL (70-105) H 10/27/18 06:19 POC Glucose 135 mg/dL (70-99) H 10/26/18 21:43 H & H 10/27/18 Range/Units 06:19 Hgb 12.4 D (11.5-15.4) g/dL Hct 37.4 (35.3-44.9) % All other labs normal. Consult Discharge Plan - Plan Referrals: NONE,PCP [Primary Care Provider] -
[2018-10-27] MEDS: Ondansetron ODT 4 MG TAB.RAPDIS SL PRN ×2 (10:04→18:00)
--- NOTE | 2018-10-27 11:49 | Internal Med Progress Note ---
Hospitalist Progress Note - Encounter Date of Encounter: 10/27/18 Time of Encounter: 08:50 - Subjective Interval History: Patient complains of some right shoulder pain. She denies numbness or tingling or swelling in her right arm or hand. She denies fevers or chills, chest pain, shortness of breath, abdominal pain, nausea, vomiting. She denies any pa lpitations. She is in atrial fibrillation and was in rapid ventricular rate with heart rate up to 140s. However diltiazem drip is now at 15mg and her heart rate is 80s to 100s. - Exam Vitals: Temp Pulse Resp BP Pulse Ox 97.7 F 118 14 109/65 95 10/27/18 11:07 10/27/18 11:07 10/27/18 11:07 10/27/18 11:07 10/27/18 11:07 Exam: General: alert, no acute distress Head: atraumatic, normocephalic Eyes: EOMI, normal conjunctiva ENT: oral mucosa moist Neck: trachea midline, no JVD Chest: symmetrical chest wall rise Cardiac: Irregular rhythm, normal rate, no murmurs Respiratory: CTA bilaterally, no wheezing Abdomen: soft, nontenderm nondistended Extremities: Right arm in sling, mild tenderness to palpation over right shoulder, no ecchymosis or hematoma. Able to move all 5 fingers on right hand and wrist. No sensory deficits. Bilateral radial pulses palpable and equal. Normal capillary refill. No calf tenderness Neurologic: AAOx3, no sensory deficits Psych: normal mood and affect Skin: No ecchymosis. warm, dry, intact - Assessment and Plan (1) Proximal humerus fracture Current Visit: Yes Status: Acute Assessment and Plan: Nondisplaced proximal humrus fracture Appreciate Orthopedic Surgery, Dr. Robert, recommendations Patient is not a surgical candidate. Sling for immobilization x3 weeks Will need repeat XRay in 1 week to evaluate displacement F/u 1 week or sooner with orthopedic surgery Continue pain management PT/OT (2) Atrial fibrillation with RVR Current Visit: Yes Status: Chronic Assessment and Plan: History of A. fib diagnosed in 2014, on coumadin, metoprolol, and cardizem at home Persistent A. fib, asymptomatic Received boluses of Cardizem in the emergency department and is on Cardizem drip Cardizem drip currently at 15 mg Continuous cardiac monitoring Q4 hour vital signs Metoprolol 50mg BID resumed Will check HR and BP in 2 hours. If okay, will start home Cardizem dose and continue to titrate Cardizem drip Will resume Coumadin, pharmacy to dose (3) JERRELL (acute kidney injury) Current Visit: Yes Status: Acute Assessment and Plan: Resolved. Cr at baseline. Maintenance fluids discontinued Will monitor (4) History of TIA (transient ischemic attack) Current Visit: No Status: Resolved Assessment and Plan: Patient has a prior history of a TIA, reportedly brain MRI showed some cerebral ischemia in the left periventricular area, insular cortex, and parietal region per oncology note from 02/19/2017 On aspirin and coumadin (5) COPD (chronic obstructive pulmonary disease) Current Visit: No Status: Chronic Assessment and Plan: DuoNebs q4h prn (6) Osteopenia Current Visit: Yes Status: Chronic Assessment and Plan: Per chart review patient had a DEXA scan 05/28/2010 which confirmed osteopenia with a left femoral neck T score of -1.7. 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 She received left breast radiotherapy followed by adjuvant endocrine therapy On Palbociclin and Letrozole (8) HTN (hypertension) Current Visit: No Status: Chronic DVT Prophylaxis: Coumadin - Time Spent with Patient Total time spent is greater than 50% in coordination of care (as documented) at patient's floor/unit and/or counseling patient: Internal Medicine: Result - Labs CBC & Chem 7: 10/27/18 06:19 10/27/18 06:19 Labs: Short CBC 10/27/18 Range/Units 06:19 WBC 7.9 (4.3-11.1) K/mcL Hgb 12.4 D (11.5-15.4) g/dL Hct 37.4 (35.3-44.9) % Plt Count 157 (140-400) K/mcL Neutrophils # 5.9 (1.6-8.9) K/mcL BMP 10/27/18 06:19 Sodium 138 Potassium 4.2 Chloride 103 Carbon Dioxide 29 BUN 14 Creatinine 1.00 Glucose 122 H Calcium 9.2 - ABG Interpretation ABG results: PT/INR, D-dimer PT 34.3 Seconds (9.4-12.1) H 10/27/18 06:19 - Impressions Impressions Chest X-Ray 10/26/18 21:22 IMPRESSION: No acute cardiopulmonary abnormality. D/ / Eliazar Cordova MD / Eliazar Cordova MD Interpreting Provider: Eliazar Cordova MD Consult Discharge Plan - Plan Referrals: NONE,PCP [Primary Care Provider] - (1) Proximal humerus fracture Qualifiers: Encounter type: initial encounter Fracture type: closed Fracture morphology: unspecified fracture morphology Laterality: right Qualified Code(s): S42.201A - Unspecified fracture of upper end of right humerus, initial encounter for clos ed fracture (5) COPD (chronic obstructive pulmonary disease) Qualifiers: Qualified Code(s): J44.9 - Chronic obstructive pulmonary disease, unspecified (6) Osteopenia Qualifiers: Osteopenia location: femoral neck Laterality: left Qualified Code(s): M85.852 - Other specified disorders of bone density and structure, left thigh (8) HTN (hypertension) Qualifiers: Hypertension type: essential hypertension Qualified Code(s): I10 - Essential (primary) hypertension
[2018-10-27] MEDS ORDERED: Warfarin perPT PO PRN (18:00)
[2018-10-27] MEDS ORDERED: *HR* Warfarin 3 MG TABLET PO ONE (18:00)
[2018-10-28] MEDS: *HR* OxyCODONE Immed Rel 5 MG TABLET PO PRN ×4 (00:42→20:10)
[2018-10-28 06:55] LABS: INR 3.3; Prothrombin Time 37.1 Seconds (9.4-12.1)
[2018-10-28 07:00] LABS: BUN/Creatinine Ratio 11 (6-26); Blood Urea Nitrogen 10 mg/dL (8-23); Calcium 9.2 mg/dL (8.6-10.3); Carbon Dioxide 29 mEq/L (23-29); Chloride 102 mEq/L (98-107); Glucose 114 mg/dL (70-105); Osmolality,Calculated 282 (280-300); Potassium 4.6 mEq/L (3.5-5.1); Sodium 136 mEq/L (136-145); eGFR For Non-African Americans 56 (> 60)
[2018-10-28] MEDS: Aspirin Enteric Coated 81 MG Tablet PO SCH (08:10)
--- NOTE | 2018-10-28 08:34 | Internal Med Progress Note ---
Hospitalist Progress Note - Encounter Date of Encounter: 10/28/18 Time of Encounter: 08:10 - Subjective Interval History: Patient states she is doing well this morning. Heart rate improved and now on Cardizem drip 12.5 mg. She denies chest pain, shortness of breath, palpitations, lightheadedness, nausea, vomiting, abdominal pain. She still complains of pain of her right shoulder that is controlled with the current pain regimen she is on. We will try physical therapy today. - Exam Vitals: Temp Pulse Resp BP Pulse Ox 98.2 F 86 18 156/79 93 10/28/18 07:42 10/28/18 07:42 10/28/18 07:42 10/28/18 07:42 10/28/18 07:42 Exam: General: alert, no acute distress, laying in bed Head: atraumatic, normocephalic Eyes: EOMI, normal conjunctiva ENT: oral mucosa moist Neck: trachea midline Chest: symmetrical chest wall rise Cardiac: Irregular rhythm, normal rate, no murmurs Respiratory: CTA bilaterally, no wheezing Abdomen: soft, nontender, nondistended Extremities: Right arm in sling, tenderness to palpation over right shoulder, no ecchymosis or hematoma. Able to move all 5 fingers on right hand and wrist. R mmi teacher strength 5/5. No sensory deficits. Bilateral radial pulses palpable and equal. Normal capillary refill. No calf tenderness Neurologic: AAOx3, no sensory deficits Psych: normal mood and affect Skin: No ecchymosis. warm, dry, intact - Assessment and Plan (1) Atrial fibrillation with RVR Current Visit: Yes Status: Chronic Assessment and Plan: History of A. fib diagnosed in 2014, on coumadin, metoprolol, and cardizem at home Home medication includes metoprolol 50 mg twice a day, which patient has only been taking once a day. Cardizem 240 mg twice a day at home. Persistent A. fib, asymptomatic. Heart rate 90 to 100s on 12.5 mg Cardizem drip. Continuous cardiac monitoring Q4 hour vital signs Metoprolol increased to 75 mg twice a day. We will add Cardizem 300 mg once a day and wean off Cardizem drip. We will monitor patient's heart rate and blood pressures on this regimen. Discussed plan with Pharmacist and family. Warfarin, pharmacy to dose. Possible discharge home tomorrow. (2) Proximal humerus fracture Current Visit: Yes Status: Acute Assessment and Plan: Nondisplaced proximal humerus fracture Appreciate Orthopedic Surgery, Dr. Robert, recommendations Patient is not a surgical candidate. Sling for immobilization x3 weeks Plan: Repeat XRay in 1 week to evaluate for displacement F/u 1 week or sooner with orthopedic surgery Continue current pain management PT/OT (3) COPD (chronic obstructive pulmonary disease) Current Visit: No Status: Chronic Assessment and Plan: Continue DuoNebs q4h prn Not in acute exacerbation. (4) Osteopenia Current Visit: Yes Status: Chronic Assessment and Plan: Per chart review patient had a DEXA scan 05/28/2010 which confirmed osteopenia with a left femoral neck T score of -1.7. Also has vitamin D deficiency with a level of 26 and 02/17/2017 (5) HTN (hypertension) Current Visit: No Status: Chronic Assessment and Plan: Resumed Lasix. On Metoprolol 75mg BID and Cardizem 300mg qd now. Continue to monitor DVT Prophylaxis: Coumadin - Time Spent with Patient Total time spent is greater than 50% in coordination of care (as documented) at patient's floor/unit and/or counseling patient: Internal Medicine: Result - Labs CBC & Chem 7: 10/27/18 06:19 10/28/18 06:28 Labs: BMP 10/28/18 06:28 Sodium 136 Potassium 4.6 Chloride 102 Carbon Dioxide 29 BUN 10 Creatinine 0.95 Glucose 114 H Calcium 9.2 - ABG Interpretation ABG results: PT/INR, D-dimer PT 37.1 Seconds (9.4-12.1) H 10/28/18 06:28 - Impressions Impressions Echocardiogram 10/27/18 21:21 Impressions: LVEF 50-55%. Normal LV chamber size, wall thickness and function. Indeterminate diastolic function. Normal right ventricular structure and function. Moderate biatrial enlargement Mild mitral regurgitation. Mild pulmonary hypertension. Left Ventricular Wall Motion: Rest Echo Findings All wall segments showed normal motion. Findings: Study Quality * Technically adequate exam. ECG Findings * Atrial fibrillation. Left Ventricle * LVEF 50-55%. * Normal LV chamber size, wall thickness and function. * Indeterminate diastolic function. Right Ventricle * Normal right ventricular structure and function. Left Atrium * Moderately dilated left atrium. Right Atrium * Moderately dilated right atrium. Interatrial Septum * Interatrial septum not well evaluated. Aortic Valve * Aortic valve not well visualized. * No aortic regurgitation. * No aortic stenosis. Mitral Valve * No mitral stenosis. * Mild mitral regurgitation. * Normal mitral valve structure. Tricuspid Valve * No tricuspid stenosis. * Normal tricuspid valve structure. * Mild pulmonary hypertension. * Estimated RVSP is 33 mmHg. * Estimated RA pressure is 5 mmHg. * Mild tricuspid regurgitation. Pulmonic Valve * Pulmonic valve is not well visualized. Aorta * Normally sized aortic root. Pericardium * The pericardium appears normal. IVC * Normal IVC dimensions and inspiratory collapse. Pulmonary Artery * Pulmonary artery not well visualized. Consult Discharge Plan - Plan Referrals: NONE,PCP [Primary Care Provider] - (2) Proximal humerus fracture Qualifiers: Encounter type: initial encounter Fracture type: closed Fracture morphology: unspecified fracture morphology Laterality: right Qualified Code(s): S42.201A - Unspecified fracture of upper end of right humerus, initial encounter for closed fracture (3) COPD (chronic obstructive pulmonary disease) Qualifiers: Qualified Code(s): J44.9 - Chronic obstructive pulmonary disease, unspecified (4) Osteopenia Qualifiers: Osteopenia location: femoral neck Laterality: left Qualified Code(s): M85.852 - Other specified disorders of bone density and structure, left thigh (5) HTN (hypertension) Qualifiers: Hypertension type: essential hypertension Qualified Code(s): I10 - Essential (primary) hypertension
[2018-10-28] MEDS ORDERED: Diltiazem CD (24hr) 300 MG CAPSULE PO SCH (09:00)
[2018-10-28] MEDS ORDERED: Metoprolol 100 MG TABLET PO SCH (09:00)
--- NOTE | 2018-10-28 09:40 | Event Note ---
Date of Encounter: 10/28/18 Time of Encounter: 09:35 Patient was seen and examined. I agree with the progress note as written by the resident physician. Patient admitted after a mechanical fall and was found to have a right humerus fracture and seen by orthopedics and being managed conservatively and nonoperatively. Has a history of A. fib and was in A. fib with RVR. Started on a Cardizem drip. Rate is better controlled on the Cardizem drip and we will try to get her off the Cardizem drip today. Otherwise pain is well-controlled. She still has significant pain with movement. GEN: NAD CVS: Tachycardic and irregular S1, S2, No m/r/g RESP: CTAB ABD: Soft, NT, ND, +BS EXT: No edema. 2+ DP. No rashes. Right arm in a sling NEURO: Nonfocal Continue pain control and PTOT. Cardizem drip to be turned off and we have started patient on oral Cardizem 300 mg. She takes 240 mg of oral Cardizem ER BID. May need to give her more Cardizem later if she remains tachycardic after turning off the Cardizem drip. Continue Lopressor 75 mg BID. This has been increased as well compared to her home dose. Continue Coumadin Continue home meds Wean off oxygen
[2018-10-28] MEDS: Metoprolol 100 MG TABLET PO SCH (20:10)
[2018-10-29 03:46] LABS: BUN/Creatinine Ratio 14 (6-26); Blood Urea Nitrogen 14 mg/dL (8-23); Calcium 8.7 mg/dL (8.6-10.3); Carbon Dioxide 33 mEq/L (23-29); Chloride 100 mEq/L (98-107); Glucose 123 mg/dL (70-105); Osmolality,Calculated 284 (280-300); Potassium 4.8 mEq/L (3.5-5.1); Sodium 136 mEq/L (136-145); eGFR For Non-African Americans 52 (> 60)
[2018-10-29 03:50] LABS: INR 3.3; Prothrombin Time 37.4 Seconds (9.4-12.1)
[2018-10-29] MEDS: Metoprolol 100 MG TABLET PO SCH ×2 (08:22→20:35)
[2018-10-29] MEDS: Furosemide 20 MG TABLET PO SCH ×2 (08:22→12:40)
[2018-10-29] MEDS: Aspirin Enteric Coated 81 MG Tablet PO SCH (08:23)
--- NOTE | 2018-10-29 08:23 | Internal Med Progress Note ---
Hospitalist Progress Note - Encounter Date of Encounter: 10/29/18 Time of Encounter: 08:30 - Subjective Interval History: Patient is sitting up in chair and eating breakfast. Her heart rate has been 130-150s this morning. BP normotensive. Will resume Cardizem drip and obtain Cardiology consultation. She states pain in her right shoulder is well controll ed. She does have some erythema in her left forearm, no painful or itchy where the IV infiltrated yesterday. Will start Keflex for possible cellulitis as the patient had elevated temperature of 100 overnight. - Exam Vitals: Temp Pulse Resp BP Pulse Ox 100 F H 87 16 137/79 96 10/29/18 03:13 10/29/18 08:03 10/29/18 08:03 10/29/18 08:03 10/29/18 08:03 Exam: General: alert, no acute distress, sitting up in chair Head: atraumatic, normocephalic Eyes: EOMI, normal conjunctiva ENT: oral mucosa moist Neck: trachea midline Chest: symmetrical chest wall rise Cardiac: Irregular rhythm, tachycardic, no murmurs Respiratory: CTA bilaterally, no wheezing Abdomen: soft, nontender, nondistended Extremities: Right arm in sling, tenderness to palpation over right shoulder, no ecchymosis or hematoma. Able to move all 5 fingers on right hand and wrist. R repairer auto clocks strength 5/5. No sensory deficits. Bilateral radial pulses palpable and equal. Normal capillary refill. Left forearm with area of erythema, nonblanching, and tender. No calf tenderness or pedal edema Neurologic: AAOx3, no sensory deficits Psych: normal mood and affect Skin: Warm and dry, intact - Assessment and Plan (1) Atrial fibrillation with RVR Current Visit: Yes Status: Chronic Assessment and Plan: Today with RVR, HR 130-150s. Off Cardizem drip. History of A. fib diagnosed in 2014, on coumadin, metoprolol, and cardizem at home Home medication includes metoprolol 50 mg twice a day, which patient has only been taking once a day. Cardizem 240 mg twice a day at home. Persistent A. fib, asymptomatic. Plan: Continuous cardiac monitoring Q4 hour vital signs Continue Metoprolol 100mg BID. Consulted Cardiology. D/w Dr. Burk. Will give home dose Cardizem, 240mg BID and restart Cardizem drip. Continue Warfarin, pharmacy to dose. Possible discharge home tomorrow. (2) Cellulitis of arm, left Current Visit: Yes Status: Suspected Assessment and Plan: Infiltration of L arm peripheral IV yesterday with erythema and tenderness on forearm Tmax 100 Will start Keflex for suspected cellulitis (3) Proximal humerus fracture Current Visit: Yes Status: Acute Assessment and Plan: Nondisplaced proximal humerus fracture Appreciate Orthopedic Surgery, Dr. Robert, recommendations Patient is not a surgical candidate at this time. Sling for immobilization x3 weeks Plan: Repeat XRay in 1 week to evaluate for displacement Follow up 1 week or sooner with orthopedic surgery Continue current pain management Continue pT/OT Will need quad cane and home PT on discharge (4) COPD (chronic obstructive pulmonary disease) Current Visit: No Status: Chronic Assessment and Plan: Chronic. Continue DuoNebs q4h prn (5) Osteopenia Current Visit: Yes Status: Chronic Assessment and Plan: Per chart review patient had a DEXA scan 05/28/2010 which confirmed osteopenia wi th a left femoral neck T score of -1.7. Also has vitamin D deficiency with a level of 26 and 02/17/2017 (6) HTN (hypertension) Current Visit: No Status: Chronic Assessment and Plan: Remains normotensive Plan as above Continue other home medications. DVT Prophylaxis: Coumadin per pharmacy dosing - Time Spent with Patient Total time spent is greater than 50% in coordination of care (as documented) at patient's floor/unit and/or counseling patient: Internal Medicine: Result - Labs CBC & Chem 7: 10/27/18 06:19 10/29/18 03:13 Labs: BMP 10/29/18 03:13 Sodium 136 Potassium 4.8 Chloride 100 Carbon Dioxide 33 H BUN 14 Creatinine 1.02 Glucose 123 H Calcium 8.7 - ABG Interpretation ABG results: PT/INR, D-dimer PT 37.4 Seconds (9.4-12.1) H 10/29/18 03:13 Consult Discharge Plan - Plan Referrals: NONE,PCP [Primary Care Provider] - (3) Proximal humerus fracture Qualifiers: Encounter type: initial encounter Fracture type: closed Fracture morphology: unspecified fracture morphology Laterality: right Qualified Code(s): S42.201A - Unspecified fracture of upper end of right humerus, initial encounter for closed fracture (4) COPD (chronic obstructive pulmonary disease) Qualifiers: Qualified Code(s): J44.9 - Chronic obstructive pulmonary disease, unspecified (5) Osteopenia Qualifiers: Osteopenia location: femoral neck Laterality: left Qualified Code(s): M85.852 - Other specified disorders of bone density and structure, left thigh (6) HTN (hypertension) Qualifiers: Hypertension type: essential hypertension Qualified Code(s): I10 - Essential (primary) hypertension
--- NOTE | 2018-10-29 08:26 | Event Note ---
Date of Encounter: 10/29/18 Time of Encounter: 08:22 Patient was seen and examined. I agree with the progress note as written by the resident physician. Remains uncontrolled with afib rates up to 150s. Cardizem drip was turned off yesterday as her rate was better. Has a Tmax of 100 with an area of erythema and tenderness on left forearm at site of IV. Patient admitted after a mechanical fall and was found to have a right humerus fracture and seen by orthopedics and being managed conservatively and nonoperatively. Has a history of A. fib and was in A. fib with RVR. Started on a Cardizem drip. Otherwise pain is well- controlled. She still has significant pain with movement. GEN: NAD CVS: Tachycardic and irregular S1, S2, No m/r/g RESP: CTAB ABD: Soft, NT, ND, +BS EXT: No edema. 2+ DP. No rashes. Right arm in a sling NEURO: Nonfocal Continue pain control and PTOT. Resume cardizem drip and consult cardiology. s tachycardic after turning off the Cardizem drip. Lopressor increased to 100 mg BID. This has been increased as well compared to her home dose. Continue Coumadin Continue home meds
--- NOTE | 2018-10-29 10:51 | Cardiology Consult Note ---
<KaseyDarron - Last Filed: 10/29/18 13:19> Date of Encounter: 10/29/18 Time of Encounter: 10:44 Assessment and Plan Discussion w patient/family: The assessment and plan as outlined above was discussed with the patient and/or family members who expressed understanding and agreement. All questions were answered. Thank you for involving us in the care of your patient. Please call with any questions. History of Present Illness Consult date: 10/29/18 Consult reason: A. fib with RVR Chief complaint: Right humeral neck fracture History of present illness: Ms. Costa is a 83 year old female presenting from [facility] ED status post mechanical fall resulting in a nondisplaced right humeral neck fracture. Patient is noted by orthopedic surgery to be a nonsurgical candidate at this time-surgery recommends sling for 3 weeks Patient past medical history includes atrial fibrillation and hypertension Significant meds include Coumadin, aspirin, Cardizem, Lasix Patient states she has a long standing history of atrial fibrillation with difficulties with rate control Patient has failed Cardizem drip and cardioversion attempts as recently as 2016 Patient states she is asymptomatic during rapid ventricular responses and and that she does not know how often these occur but she has been told that she is in RVR when she has had her pulse checked several times in the past. Patient states that she was on amiodarone in the past which controlled her symptoms well and that this drug was stopped as she was concerned about possible side effects. Patient seen and evaluated bedside. Upon initial evaluation patient is sitting upright in hospital chair with daughter in room. Patient states that she feels fine at this time and is having no symptoms. Patient admits to recent history of increased dyspnea on exertion Patient denies chest pain, shortness of breath at rest, abdominal pain/nausea, paresthesias, headache, neck or back pain, difficulty with ambulation Patient has no other concerns or complaints at this time. X-ray shows no acute cardiopulmonary process Echocardiogram performed on October 27 shows left ventricular ejection fraction of 50-55% with mild pulmonary hypertension/mitral regurgitation, and moderate bilateral enlargement. Otherwise unremarkable study. EKG performed at outside facility notes atrial fibrillation with rapid ventricular response into the 160 range without acute ischemic change. I have personally reviewed this EKG and agree with the findings as listed above. > Continue home meds > Cardizem drip when necessary if tolerated by blood pressure > Target heart rate < 110 > Cardiology will sign off. Please re-consult as needed. Past Med Surg Social Fam HX - Past Medical History Medical history: asthma, atrial fibrillation (On Coumadin), cancer, CVA, hype rtension, malignancy Additional medical history: breast cancer Psychiatric history: no psych history - Past Surgical History Surgical History: breast surgery, knee replacement Additional surgical history: left sided lumpectomy. cardiac ablasion - Social History Smoking Status: Never smoker Smokeless Tobacco Status: No Alcohol use: none Drug use: none - Family History Father Living Status: Age at : 55 Cause of : s/p fall Mother Living Status: Age at : 63 Cause of : Stomach ca w/ brain mets Hx Family Cancer: Yes Medications and Allergies Aspirin Enteric Coated [Aspirin EC] 81 mg PO DAILY 06/08/15 [History] Warfarin [Coumadin] 5 mg PO SUTUWETHFRSA 06/08/15 [History] Warfarin [Coumadin] 7.5 mg PO MO 08/04/17 [History] Diltiazem CD (24hr) [Cardizem CD] 240 mg PO BID 10/30/17 [History] Furosemide [Lasix] 20 mg PO MOWEFR 04/14/18 [History] Albuterol Sulfate [Proair Hfa] 1 puff IH Q6H PRN #1 inh 05/19/18 [Rx] Potassium Chloride 10 meq PO AD #30 tab.er.prt 05/19/18 [Rx] Metoprolol [Lopressor] 50 mg PO DAILY 10/27/18 [History] Allergy/AdvReac Type Severity Reaction Status Date / Time azithromycin Allergy Hives Verified 08/11/18 09:54 [From Zithromax Z-Galdino] lisinopril Allergy Cough Verified 08/11/18 09:54 mannitol [From Zometa] Allergy Anaphylaxis Verified 08/11/18 09:54 zoledronic acid [From Zometa] Allergy Anaphylaxis Verified 08/11/18 09:54 All Systems Review: The remainder of the systems were reviewed and are negative Review of Systems: As per history of present illness. All systems reviewed and negative except as stated. Physical Examination Vital Signs, Last 4 Hours Pulse Resp BP Pulse Ox 10/29/18 08:03 87 16 137/79 96 General: Conversant, No Apparent Distress HEENT: Atraumatic, Normocephaly, Mucus Membranes Moist Neck: No JVD Cardiac: Normal S1 and S2, Other (Irregularly irregular rhythm noted, otherwise normal rate with physician at bedside.) Lungs: Normal Breath Sounds, No Wheeze, Rales, Rhonchi Neuro: Alert and responsive, No focal deficits noted Abdomen: Soft, Non-Tender Skin: No rashes noted on visualized skin Musculoskeletal: No Chest Wall Tenderness Extremities: No Clubbing, No Cyanosis, No Edema, Normal Pulses Results 10/27/18 06:19 10/29/18 03:13 Lab Results 10/29/18 10/29/18 03:13 03:13 INR 3.3 Sodium 136 Potassium 4.8 Chloride 100 Carbon Dioxide 33 H BUN 14 Creatinine 1.02 Glucose 123 H Calcium 8.7 - Imaging and Cardiology Chest Xray: report reviewed Echo: report reviewed - EKG Interpretation EKG results cardiology: personally reviewed, no diagnostic ischemia Consult Discharge Plan - Plan Referrals: NONE,PCP [Primary Care Provider] - <Anupama Burk - Last Filed: 10/29/18 14:55> Date of Encounter: 10/29/18 - Attending Attestation Patient was seen and evaluated independently by me. Findings, assessment and plan were discussed at length with patient, questions answered. Agree with nurse practitioner's/resident's documentation. Addition as follows, 83 yoCF ho chronic Afib on cardizem CD 240bid and lopressor 50bid at home, HTN, CVA. P/w mechanical fall c/b nondisplaced R-humeral neck fracture no surgical plan. Consulted for rate ctr. Review of tele HR 80s-110s. Lopressor up to 100 bid, however, cardizem po dose lower than home dose on dilt drip. BP mild fluctuation, IR, CTA, no LE edema. TTE EF 50-55%, RV nl, mod bi-atrial enlargement, mild MR, mild PH. INR 3.3, no JERRELL, Hb nl A: Afib mild RVR, on warfarin nondisplaced R-humeral neck fracture no surgical plan P: resume home dose of cardizem 240 BID c/w lopressor 100 bid for now goal VR 80-110 if dizziness at home, reduce lopressor to prior 50 bid Anupama Burk MD, PhD Assessment and Plan Discussion w patient/family: The assessment and plan as outlined above was discussed with the patient and/or family members who expressed understanding and agreement. All questions were answered. Thank you for involving us in the care of your patient. Please call with any questions. History of Present Illness History of present illness: Ms. Costa is a 83 year old female All Systems Review: The remainder of the systems were reviewed and are negative Physical Examination Vital Signs, Last 4 Hours Temp Pulse Resp BP Pulse Ox 10/29/18 11:27 97.5 F L 88 16 162/92 91 Results 10/27/18 06:19 10/29/18 03:13 Lab Results 10/29/18 10/29/18 03:13 03:13 INR 3.3 Sodium 136 Potassium 4.8 Chloride 100 Carbon Dioxide 33 H BUN 14 Creatinine 1.02 Glucose 123 H Calcium 8.7
[2018-10-29] MEDS: Diltiazem CD (24hr) 240 MG CAPSULE PO SCH ×2 (13:08→20:36)
[2018-10-29] MEDS: *HR* OxyCODONE Immed Rel 5 MG TABLET PO PRN ×3 (13:08→20:36)
[2018-10-29] MEDS: cephALEXin 500 MG CAPSULE PO SCH ×4 (13:08→20:35)
[2018-10-29] MEDS: Ondansetron ODT 4 MG TAB.RAPDIS SL PRN ×2 (15:19→18:48)
[2018-10-29] MEDS ORDERED: *HR* Warfarin 2.5 MG TABLET PO ONE (18:00)
[2018-10-30 06:00] LABS: Prothrombin Time 34.2 Seconds (9.4-12.1)
[2018-10-30 07:26] VITALS: BP 124/62
--- NOTE | 2018-10-30 07:32 | Discharge Summary ---
Orders not resulted at time of discharge: Pending orders 10/31/18 04:00 PT/INR [Prothrombin Time INR] [COAG] AM 0400 11/01/18 04:00 PT/INR [Prothrombin Time INR] [COAG] AM 0400 11/02/18 04:00 PT/INR [Prothrombin Time INR] [COAG] AM 0400 Date of Encounter: 10/30/18 Time of Encounter: 07:30 - Discharge Diagnosis (1) Proximal humerus fracture Priority: Primary Status: Acute Qualifiers: Encounter type: initial encounter Fracture type: closed Fracture morphology: unspecified fracture morphology Laterality: right Qualified Code(s): S42.201A - Unspecified fracture of upper end of right humerus, initial encounter for closed fracture (2) Atrial fibrillation with RVR Priority: Primary Status: Chronic (3) Cellulitis of arm, left Priority: Primary Status: Suspected (4) CKD (chronic kidney disease), stage III Priority: Secondary Status: Chronic (5) COPD (chronic obstructive pulmonary disease) Priority: Secondary Status: Chronic Qualifiers: Qualified Code(s): J44.9 - Chronic obstructive pulmonary disease, unspecified (6) HTN (hypertension) Priority: Secondary Status: Chronic Qualifiers: Hypertension type: essential hypertension Qualified Code(s): I10 - Essential (primary) hypertension Hospital course: Ms. Costa is a 83 year old female with a history of A. fib on Coumadin, prior TIA, COPD with an FEV1 68% in 2017, and CHF who presented to [facility] emergency department with a chief complaint of right shoulder pain. This began after patient suffered a mechanical fall. She stated that she was at her son's house and tripped over a rug and landed on her right side with her arm outstretched. She struck her hand and right hip and had significant pain after the event. In [facility] ED, an x-ray of the shoulder revealed an acute fracture of the right humeral neck. She was also found to be in A. fib with RVR with a heart rate in the 160s. Patient stated that she is always in A. fib and that it has been difficult to rate control in the past. She was transferred to us and seen by Dr. Robert from [facility]. Plan is to treat conservatively with a sling and follow up with him. The patient had afib with RVR upon admission and was on a cardizem drip. She was resumed on her home dose cardizem CD 240 mg BI and lopressor was increased to 100 mg BID. She was taking it 50 mg BID prior to this. Cardiology did see the patient while here as well and were ok with this. She was discharged home on 10/30/2018. She was given a script to finish keflex for 5 days as she had some erythema and tenderness on the left forearm after IV infiltrated. Tmax was 100 while here. - Time Spent with Patient Total time spent providing and/or coordinating discharge services: Greater than 30 minutes - Discharge Medications Prescriptions: New OxyCODONE Immed Rel [Roxicodone 5 MG] 5 mg PO Q6HR PRN 6 Days #30 tablet PRN Reason: Moderate Pain cephALEXin [Keflex] 500 mg PO QID #16 capsule Metoprolol [Lopressor] 100 mg PO BID #60 tablet Continue Warfarin [Coumadin] 5 mg PO SUTUWETHFRSA Aspirin Enteric Coated [Aspirin EC] 81 mg PO DAILY Warfarin [Coumadin] 7.5 mg PO MO Diltiazem CD (24hr) [Cardizem CD] 240 mg PO BID Furosemide [Lasix] 20 mg PO MOWEFR Albuterol Sulfate [Proair Hfa] 1 puff IH Q6H PRN #1 inh PRN Reason: Wheezing Potassium Chloride 10 meq PO AD #30 tab.er.prt Discontinued Metoprolol [Lopressor] 50 mg PO DAILY Home Medications: Aspirin Enteric Coated [Aspirin EC] 81 mg PO DAILY 06/08/15 [History] Warfarin [Coumadin] 5 mg PO SUTUWETHFRSA 06/08/15 [History] Warfarin [Coumadin] 7.5 mg PO MO 08/04/17 [History] Diltiazem CD (24hr) [Cardizem CD] 240 mg PO BID 10/30/17 [History] Furosemide [Lasix] 20 mg PO MOWEFR 04/14/18 [History] Albuterol Sulfate [Proair Hfa] 1 puff IH Q6H PRN #1 inh 05/19/18 [Rx] Potassium Chloride 10 meq PO AD #30 tab.er.prt 05/19/18 [Rx] Metoprolol [Lopressor] 100 mg PO BID #60 tablet 10/30/18 [Rx] OxyCODONE Immed Rel [Roxicodone 5 MG] 5 mg PO Q6HR PRN 6 Days #30 tablet 10/30/18 [Rx] cephALEXin [Keflex] 500 mg PO QID #16 capsule 10/30/18 [Rx] Allergies/Adverse Reactions: Allergy/AdvReac Type Severity Reaction Status Date / Time azithromycin Allergy Hives Verified 08/11/18 09:54 [From Zithromax Z-Galdino] lisinopril Allergy Cough Verified 08/11/18 09:54 mannitol [From Zometa] Allergy Anaphylaxis Verified 08/11/18 09:54 zoledronic acid [From Zometa] Allergy Anaphylaxis Verified 08/11/18 09:54 Date of admission: 10/27/18 01:39 Primary care physician: PCP NONE Consults: 10/26/18 22:12 Consult to Orthopedic Surgery [CONS] Routine Consulting Provider: [facility] Reason for Consult: mechanical fall at home, acute fracture right femoral neck, hx osteopenia Call Completed: No 10/26/18 23:19 Consult to Nutrition [CONS] Routine Comment: Consulting Provider: NUTRITION Reason for Dietary Consult: Diet Education 10/27/18 11:52 Consult to Occupational Therapy [CONS] Routine Comment: Evaluate, develop and implement POC Reason for Consult: R proximal humral fracture, sling, non op management Does patient have active BEDREST order?: No Is patient medically & hemodynamically stable?: Yes Consult to Physical Therapy [CONS] Routine Comment: Evaluate, develop and implement POC Reason for Consult: R proximal humeral fracture, sling, non op management Does patient have active BEDREST order?: No Is patient medically & hemodynamically stable?: Yes Patient assessed for mobility or mobilized this visit?: No 10/29/18 08:24 Consult to Cardiology [CONS] Routine Comment: Consulting Provider: Cardiology Chloe Reason for Consult: atrial fibrillation with RVR Call Completed: Yes - Constitutional Vitals: Temp Pulse Resp BP Pulse Ox 97.9 F 60 14 124/62 99 10/30/18 07:23 10/30/18 07:23 10/30/18 04:00 10/30/18 07:23 10/30/18 07:23 General appearance: Present: cooperative, A&O X 3, pleasant, answers questions appropriately Exam: GEN: NAD CVS: Tachycardic and irregular S1, S2, No m/r/g RESP: CTAB ABD: Soft, NT, ND, +BS EXT: No edema. 2+ DP. No rashes. Right arm in a sling NEURO: Nonfocal - Patient Status Disposition: Home, Self-Care Condition: Fair Overall status at discharge: patient is progressing back to baseline - Discharge Instructions Instructions: Cephalexin (By mouth), Metoprolol (By mouth), Warfarin (By mouth), Oxycodone, Rapid Release (By mouth), Atrial Fibrillation (DC), Arm Fracture in Adults (DC) Follow Up With: Elizabeth Goldman MD [Partnered Physician] - (Submitted a web request for a hospital follow up .....they will contact the patient with an appointment) Fili Robert MD [Partnered Physician] - (1-2 weeks) Additional Instructions: PLEASE CALL [facility] ON THURSDAY TO SET UP AN APPOINTMENT FOR INR DRAW - Diet and Activity Activity: increase activity as tolerated Diet: low salt diet
[2018-10-30] MEDS: Metoprolol 100 MG TABLET PO SCH (08:05)
[2018-10-30] MEDS: *HR* OxyCODONE Immed Rel 5 MG TABLET PO PRN (08:05)
[2018-10-30] MEDS: cephALEXin 500 MG CAPSULE PO SCH (08:06)
[2018-10-30] MEDS: Diltiazem CD (24hr) 240 MG CAPSULE PO SCH (08:06)
[2018-10-30] MEDS: Aspirin Enteric Coated 81 MG Tablet PO SCH (08:06)
[2018-10-30] MEDS ORDERED: *HR* Warfarin 2.5 MG TABLET PO ONE (18:00)
--- NOTE | 2018-10-30 20:08 | Electrocardiograph Report ---
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
== END 2018-10-30 11:06 | disposition home or self-care (01) | DRG 563 ==
LOC: 2NENU → SUATTDRO 10-27 01:39
PROVIDERS: ADMIT Internal Medicine; ATTEND Internal Medicine

== ENCOUNTER 2022-04-24 12:24 | Inpatient (IN) ==
[~2022-04-24 12:24] MED LIST: Famotidine 20 MG/2 ML VIAL IVP ONE
[2022-04-24] MEDS ORDERED: Ringers Solution, Lactated 1,000 ML IVC SCH (12:45)
[2022-04-24] MEDS ORDERED: Nitroglycerin 0.4 MG TAB.SUBL SL PRN (13:52)
[2022-04-24] MEDS ORDERED: Naloxone 0.4 MG/ML INJ IVP PRN (13:52)
[2022-04-24] MEDS ORDERED: Ondansetron 4 MG/2 ML VIAL IVP PRN (13:52)
[2022-04-24] MEDS ORDERED: Albuterol 2.5 MG/3 ML NEBULIZER IH PRN (13:52)
[2022-04-24] MEDS ORDERED: *HR* FentaNYL (PF) 100 MCG/2 ML VIAL IVP PRN (13:52)
[2022-04-24] MEDS ORDERED: Acetaminophen IV 1,000 MG/100 ML BAG IVPB ONE (13:52)
[2022-04-24] MEDS ORDERED: Lidocaine -MPF 2% 5 ML VIAL ONE ×2 (13:54→15:11)
[2022-04-24] MEDS ORDERED: Ondansetron 4 MG/2 ML VIAL ONE (13:54)
[2022-04-24] MEDS ORDERED: *HR* Rocuronium Bromide 50 MG/5 ML VIAL ONE (13:55)
[2022-04-24] MEDS ORDERED: *HR* Propofol 200 MG/20 ML VIAL IVP ONE (13:55)
[2022-04-24] MEDS ORDERED: Lidocaine HCL 4 ML Topical Solution (Laryng-O-Jet Kit Sterile Pak) TP ONE (14:41)
[2022-04-24] MEDS ORDERED: *HR* FentaNYL (PF) 100 MCG/2 ML VIAL ONE (14:41)
[2022-04-24] MEDS ORDERED: EPHEDrine 50 MG/ML VIAL ONE (14:49)
[2022-04-24] MEDS ORDERED: *HR* Phenylephrine 10 MG/ML VIAL ONE (14:52)
[2022-04-24] MEDS ORDERED: *HR* EPINEPHrine 1 MG/10 ML SYRINGE INTRATRACH PRN (14:54)
[2022-04-24] MEDS ORDERED: *HR* EPINEPHrine 1 MG/10 ML SYRINGE ONE (16:15)
[2022-04-24] MEDS ORDERED: Ondansetron ODT 4 MG TAB.RAPDIS SL PRN (19:13)
[2022-04-24] MEDS ORDERED: Melatonin 3 MG TABLET PO PRN (19:13)
[2022-04-24] MEDS ORDERED: Ipratropium/Albuterol Neb 3 ML IH PRN (19:31)
[2022-04-24] MEDS: Metoprolol 100 MG TABLET PO SCH (20:39)
[2022-04-24] MEDS ORDERED: DilTIAZem CD (24hr) 240 MG CAP.ER.24H PO SCH (21:00)
[2022-04-24] MEDS: Ipratropium/Albuterol Neb 3 ML IH SCH (21:35)
[2022-04-25 02:56] LABS: Hematocrit 42.7 % (35.3-44.9); Mean Corpuscular HGB Conc 32.8 g/dL (31.6-35.5); Mean Corpuscular Volume 94.7 fL (83.0-100.0); Mean Platelet Volume 9.8 fL (9.4-12.4); Platelet Count 194 K/mcL (140-400); Red Blood Count 4.51 M/mcL (3.82-4.97); Red Cell Distribution Width 13.1 % (11.5-14.5); White Blood Count 7.9 K/mcL (4.3-11.1)
[2022-04-25 03:04] LABS: Calcium 8.8 mg/dL (8.6-10.3); Phosphorous 2.9 mg/dL (2.7-4.5); Potassium 4.4 mEq/L (3.5-5.1)
[2022-04-25] MEDS: Ipratropium/Albuterol Neb 3 ML IH SCH (03:52)
[2022-04-25] MEDS: Metoprolol 100 MG TABLET PO SCH ×2 (07:49→19:46)
[2022-04-25] MEDS: Levalbuterol Neb 1.25 MG/3 ML IH SCH ×3 (10:43→22:02)
[2022-04-25] MEDS: Ipratropium Neb 0.5 MG NEBULIZER IH SCH ×3 (10:43→22:02)
[2022-04-25] MEDS ORDERED: Furosemide 20 MG/2 ML VIAL IVP ONE (10:55)
[2022-04-25] MEDS ORDERED: predniSONE 20 MG TABLET PO ONE (10:55)
[2022-04-25] MEDS: DilTIAZem CD (24hr) 180 MG CAP.ER.24H PO SCH (11:57)
[2022-04-25] MEDS ORDERED: 0.9 % Sodium Chloride 500 ML IVC ONE (15:35)
[2022-04-25 16:07] LABS: INR 1.1; Prothrombin Time 11.7 Seconds (9.4-12.1)
[2022-04-25] MEDS: DilTIAZem 50 MG/50 ML IV.SOLN IVC SCH (16:50)
[2022-04-25] MEDS ORDERED: *HR* Warfarin 4 MG TABLET PO ONE (18:00)
[2022-04-25] MEDS ORDERED: Warfarin perPT PO PRN (18:00)
[2022-04-26] MEDS: DilTIAZem 50 MG/50 ML IV.SOLN IVC SCH ×2 (01:37→09:17)
[2022-04-26] MEDS: Ipratropium Neb 0.5 MG NEBULIZER IH SCH ×4 (04:09→21:42)
[2022-04-26] MEDS: Levalbuterol Neb 1.25 MG/3 ML IH SCH ×4 (04:09→21:42)
[2022-04-26 06:25] LABS: Basophils % 0.1 %; Hemoglobin 14.3 g/dL (11.5-15.4); Immature Granulocytes % 0.5 % (0-4); Lymphocytes # 0.7 K/mcL (0.6-4.6); Lymphocytes % 3.5 %; Mean Corpuscular HGB Conc 32.5 g/dL (31.6-35.5); Mean Corpuscular Hemoglobin 30.8 pg (28.0-33.3); Mean Corpuscular Volume 94.8 fL (83.0-100.0); Mean Platelet Volume 9.9 fL (9.4-12.4); Monocytes # 1.2 K/mcL (0.0-1.3); Monocytes % 5.7 %; Neutrophils # 18.5 K/mcL (1.6-8.9); Platelet Count 181 K/mcL (140-400); Red Blood Count 4.64 M/mcL (3.82-4.97); Red Cell Distribution Width 13.3 % (11.5-14.5); Segmented Neutrophils % 90.2 %; White Blood Count 20.5 K/mcL (4.3-11.1)
[2022-04-26] MEDS: predniSONE 20 MG TABLET PO SCH (09:14)
[2022-04-26] MEDS: Metoprolol 100 MG TABLET PO SCH ×2 (09:14→20:32)
[2022-04-26] MEDS: DilTIAZem CD (24hr) 180 MG CAP.ER.24H PO SCH (09:16)
[2022-04-26] MEDS: Letrozole 2.5 MG TABLET PO SCH (09:16)
[2022-04-26] MEDS ORDERED: DilTIAZem CD (24hr) 180 MG CAP.ER.24H PO ONE (10:30)
[2022-04-26] MEDS ORDERED: *HR* Warfarin 5 MG TABLET PO ONE (18:00)
[2022-04-26] MEDS ORDERED: *HR* Metoprolol 5 MG/5 ML VIAL IVP ONE (22:06)
[2022-04-27] MEDS: Levalbuterol Neb 1.25 MG/3 ML IH SCH ×4 (04:10→21:56)
[2022-04-27] MEDS: Ipratropium Neb 0.5 MG NEBULIZER IH SCH ×4 (04:10→21:56)
[2022-04-27 06:32] LABS: Prothrombin Time 11.6 Seconds (9.4-12.1)
[2022-04-27] MEDS: DilTIAZem CD (24hr) 180 MG CAP.ER.24H PO SCH (08:50)
[2022-04-27] MEDS: predniSONE 20 MG TABLET PO SCH (08:50)
[2022-04-27] MEDS: Letrozole 2.5 MG TABLET PO SCH (08:50)
[2022-04-27] MEDS: Metoprolol 100 MG TABLET PO SCH (08:50)
[2022-04-27] MEDS ORDERED: *HR* Warfarin 5 MG TABLET PO ONE (18:00)
[2022-04-27] MEDS: Metoprolol XL (24 HR) Succ 50 MG TAB.ER.24H PO SCH (21:29)
[2022-04-27] MEDS ORDERED: *HR* Metoprolol 5 MG/5 ML VIAL IVP ONE (23:40)
[2022-04-28] MEDS: Ipratropium Neb 0.5 MG NEBULIZER IH SCH ×3 (03:59→15:43)
[2022-04-28] MEDS: Levalbuterol Neb 1.25 MG/3 ML IH SCH ×3 (03:59→15:43)
[2022-04-28 05:38] LABS: Basophils % 0.2 %; Hematocrit 42.6 % (35.3-44.9); Hemoglobin 14.2 g/dL (11.5-15.4); Immature Granulocytes % 1.2 % (0-4); Lymphocytes # 0.9 K/mcL (0.6-4.6); Lymphocytes % 6.7 %; Mean Corpuscular HGB Conc 33.3 g/dL (31.6-35.5); Mean Corpuscular Hemoglobin 31.4 pg (28.0-33.3); Mean Corpuscular Volume 94.2 fL (83.0-100.0); Mean Platelet Volume 10.2 fL (9.4-12.4); Monocytes % 7.6 %; Neutrophils # 10.8 K/mcL (1.6-8.9); Platelet Count 184 K/mcL (140-400); Red Blood Count 4.52 M/mcL (3.82-4.97); Red Cell Distribution Width 13.4 % (11.5-14.5); Segmented Neutrophils % 84.3 %; White Blood Count 12.8 K/mcL (4.3-11.1)
[2022-04-28 05:43] LABS: INR 1.3
[2022-04-28] MEDS: DilTIAZem CD (24hr) 180 MG CAP.ER.24H PO SCH (08:23)
[2022-04-28] MEDS: Metoprolol XL (24 HR) Succ 50 MG TAB.ER.24H PO SCH (08:24)
[2022-04-28] MEDS: predniSONE 20 MG TABLET PO SCH (08:24)
[2022-04-28] MEDS: Letrozole 2.5 MG TABLET PO SCH (08:24)
[2022-04-28 10:13] VITALS: BP 124/72; PULSE 84; TEMP 97.7
[2022-04-28] MEDS ORDERED: levoFLOXacin 750 MG TABLET PO ONE (14:10)
[2022-04-28 16:08] VITALS: O2SAT 94
[2022-04-28] MEDS ORDERED: *HR* Warfarin 5 MG TABLET PO ONE (18:00)
== END 2022-04-28 18:05 | disposition home or self-care (01) | DRG 166 ==
LOC: 3BNU 12:24 → SAMDAY 12:24 → SUATTDRO 18:30
PROVIDERS: ADMIT Internal Medicine; ATTEND Registered Nurse